=== PATIENT | female | born 1940 | race Caucasian/White ===

== ENCOUNTER 2024-09-23 09:06 | Inpatient (IN) | payer MEDICARE, OTHER, SELFPAY ==
[2024-09-23] VITALS (14 sets, daily range): BP systolic 136–174; BP diastolic 56–129; BMI 26.3
--- NOTE | 2024-09-23 10:00 | PTCARENOTE ---
Received pt from [facility], transport. AAO X3, anxious, denies pain or SOB on arrival. SR on monitor. 2 L NC 98%. IABP at 1:1. via RT femoral sheath. [place] lulu in rt groin also. Lines leveled , recalibrated and flushed. Abdomen soft and non tender,
fulton cath patent with clear straw colored urine. Doppler dp pulses bilaterally. Heparin infusing on arrival. Labs obtained and sent. EKG obtained.
--- NOTE | 2024-09-23 10:17 | HPS.HSE ---
Family Physician
-
Family Physician: INTERVIEWE UNKNOWN - PT NOT
Chief Complaint
-
transfer from [facility]
History of Present Illness
84 y/o F, hx of CABG x 3 with Atriclip, CAD, hx of GI bleed previously, HTN, HLD, hypothyroidism transferred today from [facility] for NSTEMI and plan for coronary intervention. She presented to [facility] with SOB, cough. in ER, found to be in acute
CHF (BNP 1979) and IV Lasix was ordered. Trop was 17. IV Heparin and ASA started for NSTEMI. Also noted to have runs of VTach. Esmolol drip was started. Patient was taken to labor custodian with mid to distal L main lesion and circ lesion; IABP and [place]
placed. Transferred to for high risk coronary intervention.
Also noted WBC of 19 with fever/UTI - Rocephin started.
Upon transfer, patient reports feeling tired, and slightly SOB. no CP. No other complaints.
Medical History
Past Medical History
Past Medical History: Reports Other (CABG x 3 with Atriclip, CAD, hx of GI bleed previously, HTN, HLD, hypothyroidism)
Past Surgical History: Reports Cardiac (CABG)
Social History
Tobacco: Non-smoker
Alcohol: None
Drug: None
Living: With Family
Family History
Family History: Not pertinent
Allergies / Home Medications
Allergies reflects when Allergies were last updated in [employer].
Home Medications with original date entered in [employer]
Allergy/Medication List:
Allergies
Allergy/AdvReac Type Severity Reaction Status Date / Time
No Known Allergies Allergy Verified 09/23/24 10:45
Home Medications
aspirin 81 mg chewable tablet 81 mg PO DAILY 05/28/22
ezetimibe 10 mg tablet (Zetia) 10 mg PO DAILY 05/28/22
levothyroxine 75 mcg tablet 100 mcg PO DAILY 05/28/22
rosuvastatin 20 mg tablet 20 mg PO HS 05/28/22
metoprolol tartrate 25 mg tablet 12.5 mg (1/2 x 25 mg) PO Q12 Heart disease/condition #60 tabs 06/13/22
pantoprazole 40 mg tablet,delayed release 40 mg PO BID Gastrointestinal issue #60 tabs 06/13/22
Review of Systems
-
A 12 point ROS was completed and negative except as noted: Yes
Physical Exam
Vital Signs
Vital Signs
Temp Pulse Resp BP Pulse Ox
98.5 F 74 27 146/81 98
09/23/24 09:54 09/23/24 10:00 09/23/24 10:00 09/23/24 09:55 09/23/24 10:00
Physical Exam
General: No Apparent Distress
HEENT: NormoCephalic and Anicteric
Respiratory: Crackles
Cardiac: S1/S2 and Regular Rhythm
GI: Soft and Non Tender
Genito-urinary: Teresa
Musculoskeletal: Other ([place] and IABP lines)
Neuro: AO x 3
Psych: Calm
Data Reviewed
-
Critical Care Time (in minutes): 75
Lab Data: Labs Reviewed by me
Impression/Plan
-
Assessment:
Acute HFpEF
- IV Lasix - requires intensive monitoring of I/Os, weights, lytes
- Echo
- Cards consult - initially Dr. Gutierrez interventional - but follows with CBC
NSTEMI presentation at [facility] 09/22
Hx of CAD s/p CABG (hx of Atriclip)
- continue IV Heparin - requires intensive monitoring of PTTs
- continue aspirin
- BB per Cardiology
Essential HTN
HLD - statin/Zetia
Hypothyroidism
- continue levothyroxine
hx of GI bleed (esophageal ulcers)
- continue PPI
- Hb stable >12. repeat pending.
Possible UTI at [facility]
- resume IV Rocephin
- UA/Cx pending
DVT ppx: IV Heparin
Code: Full
Total Critical Care Time 75 minutes. I was immediately available to the patient and staff. I personally examined, reviewed labs, diagnostic images/reports, interpretations, treatment plans, discussed patient care with other providers and family
or caregivers (if patient is unable to make decisions), entered orders as appropriate and documented the medical record.
--- NOTE | 2024-09-23 10:18 | CON.CAR ---
Consultation
Consultation Request
Date/Time Consultation Requested: 09/23/2024
Date/Time Consultation Performed: 09/23/2024
Requesting Provider: Mariola Martinez
Performing Provider: Kailyn Gutierrez
Reason for Consultation: SOB
Medical History
-
Chief Complaint: SOB and LH
History of Present Illness:
Phyllis is a 84-year-old female with past medical history of hypertension, hyperlipidemia, hypothyroidism, KCD Stage IIIA, GERD, prior vasovagal syncope, paroxysmal SVT, former smoker, prior history of GI bleed due to esophageal ulcers during admission
in 2022 and chronic anemia, coronary artery disease status post coronary artery bypass grafting with atrial clip by Dr. Aris Dubois on 06/08/2022 with a ALICIA to LAD, saphenous vein graft to OM and saphenous vein graft to RPDA and 35mm Atriclip
who was transferred urgently this morning from [facility] due to concern for high risk NSTEMI and potential need for urgent high risk coronary artery intervention warranting atherectomy after presenting there initially with acutely
worsening orthopnea, feeling like she could not lay down and feeling like she was going to along with some lightheadedness. She was noted to be in acute decompensated heart failure with BNP of 1980, lactate of 1.7, high-sensitivity troponin
elevated to 17,000 with repeat down to 15,000. Her initial EKG showed sinus rhythm, PACs and nonspecific ST T wave changes. Patient never complained of any chest pain. Repeat EKG concerning for ischemia with ST elevations in aVR and ST
depressions diffusely in other leads. Given this interventional cardiology at [facility] was consulted and patient was urgently taken to the heart catheterization lab. Her ALICIA to LAD is widely patent as is her vein graft to RPDA. Her
vein graft to OM is now occluded with a heavily calcified mid to distal left main into ostial left circumflex subtotal occlusion with JONH II flow. There is also significant ostial and proximal RCA lesions with patent vein graft to RPDA. Mid LAD
is occluded. Mild to moderate pulmonary hypertension in the setting of elevated pulmonary capillary wedge and LVEDP were noted. Normal cardiac output and cardiac index. An intra-aortic balloon pump was placed and given the high risk nature of the
lesion requiring possible urgent intervention and atherectomy decision was made to transfer her to [facility]. Patient has remained stable hemodynamically there as well as here. She was placed on esmolol drip there as well as a IV
unfractionated heparin drip. She was also loaded with 180 mg of Brilinta.
Of note her WBC count was 19,000 there with questionable fever and UTI and she was started on Rocephin. Upon transfer here patient reports generally feeling tired however tells me that her breathing has improved with no chest pain. Upon probing
she does tell me that over the last 2 months she has been experiencing increasing dyspnea with exertion however denies any lower extremity edema, orthopnea or PND. No lightheadedness/dizziness until Wednesday evening. No episodes of syncope. No
chest discomfort at rest or with exertion.
As an outpatient she is known to Dr. Ludwin Ramos who saw her last in April with reported echocardiogram from May 2024 showing overall preserved LV systolic function without significant valvular abnormalities however we do not have these
records.
Past Medical History
Past Medical History: CAD, HTN, Hypercholesterolemia, Hypothyroidism and Renal Failure
Past Surgical History: Cardiac (CABG)
Social History
Tobacco: Former Smoker
Alcohol: Occasional
Drug: None
Personal:
Living: With Family
Employment: Retired
Family History
Family History: Reviewed & Not Pertinent
Allergies / Home Medications
Allergy/AdvReac Type Severity Reaction Status Date / Time
No Known Allergies Allergy Unverified 05/28/22 21:29
�Medication �Instructions �Recorded �Confirmed �Type
aspirin 81 mg chewable tablet 81 mg PO DAILY 05/28/22 05/28/22 History
ezetimibe 10 mg tablet (Zetia) 10 mg PO DAILY 05/28/22 05/28/22 History
levothyroxine 75 mcg tablet 75 mcg PO DAILY 05/28/22 05/28/22 History
rosuvastatin 20 mg tablet 20 mg PO HS 05/28/22 05/28/22 History
acetaminophen 325 mg tablet 650 mg (2 x 325 mg) PO Q6HPRN PRN 06/13/22 Rx
mild pain,headache,temp >101F #0
tabs
clopidogrel 75 mg tablet 75 mg PO DAILY Blood clot 06/13/22 Rx
prevention/tx #30 tabs
furosemide 20 mg tablet (Lasix) 20 mg PO DAILY Fluid 06/13/22 Rx
retention/Swelling #30 tabs
metoprolol tartrate 25 mg tablet 12.5 mg (1/2 x 25 mg) PO Q12 Heart 06/13/22 Rx
disease/condition #60 tabs
oxycodone 5 mg tablet 5 mg PO Q8HPRN PRN moderate pain 06/13/22 Rx
#24 tabs
pantoprazole 40 mg tablet,delayed 40 mg PO BID Gastrointestinal 06/13/22 Rx
release issue #60 tabs
potassium chloride 10 mEq 10 meq PO DAILY Electrolyte 06/13/22 Rx
tablet,extended release(part/cryst) Repletion #15 tabs
sennosides 8.6 mg-docusate sodium 1 tab PO Q12 Constipation #15 tabs 06/13/22 Rx
50 mg tablet
Review of Systems
-
All other systems: Negative unless noted
Physical Exam
Vital Signs
Temp Pulse Resp BP Pulse Ox
98.5 F 74 27 146/81 98
09/23/24 09:54 09/23/24 10:00 09/23/24 10:00 09/23/24 09:55 09/23/24 10:00
Physical Exam
General: Well Developed, Well Nourished, No Apparent Distress and Comfortable
HEENT: Moist Mucous Membranes
Respiratory: Crackles
Cardiac: S1/S2, Regular Rhythm, JVD and HJR; Negative Murmur or Peripheral Edema
GI: Soft, Non Tender, Non Distended and Normal Bowel Sounds
Musculoskeletal: No Clubbing, No Cyanosis and No Edema
Skin: Warm and Dry
Neuro: AO x 3
Psych: Calm
Impression / Plan
-
Phyllis is a 84-year-old female with past medical history of hypertension, hyperlipidemia, hypothyroidism, CKD Stage IIIA, GERD, prior vasovagal syncope, paroxysmal SVT, former smoker, prior history of GI bleed due to esophageal ulcers during admission
in 2022 and chronic anemia, coronary artery disease status post coronary artery bypass grafting with atrial clip by Dr. Aris Dubois on 06/08/2022 with a ALICIA to LAD, saphenous vein graft to OM and saphenous vein graft to RPDA and 35mm Atriclip
who was transferred urgently this morning from [facility] due to concern for high risk NSTEMI and potential need for urgent high risk coronary artery intervention warranting atherectomy after presenting there initially with acutely
worsening orthopnea, feeling like she could not lay down and feeling like she was going to along with some lightheadedness. She was noted to be in acute decompensated heart failure with BNP of 1980, lactate of 1.7, high-sensitivity troponin
elevated to 17,000 with repeat down to 15,000. Her initial EKG showed sinus rhythm, PACs and nonspecific ST T wave changes. Patient never complained of any chest pain. Repeat EKG concerning for ischemia with ST elevations in aVR and ST
depressions diffusely in other leads. Given this interventional cardiology at [facility] was consulted and patient was urgently taken to the heart catheterization lab. Her ALICIA to LAD is widely patent as is her vein graft to RPDA. Her
vein graft to OM is now occluded with a heavily calcified mid to distal left main into ostial left circumflex subtotal occlusion with JONH II flow. There is also significant ostial and proximal RCA lesions with patent vein graft to RPDA. Mid LAD
is occluded. Mild to moderate pulmonary hypertension in the setting of elevated pulmonary capillary wedge and LVEDP were noted. Normal cardiac output and cardiac index. An intra-aortic balloon pump was placed and given the high risk nature of the
lesion requiring possible urgent intervention and atherectomy decision was made to transfer her to [facility]. Patient has remained stable hemodynamically there as well as here. She was placed on esmolol drip there as well as a IV
unfractionated heparin drip. She was also loaded with 180 mg of Brilinta.
Outpatient Social Studies Teacher: Dr. Ludwin Ramos
Impression
High risk NSTEMI, initially with ongoing ischemia, requiring intra-aortic balloon pump
Acute decompensated systolic and diastolic heart failure.
Ischemic cardiomyopathy, LVEF of 45% with lateral and inferolateral hypokinesis
Coronary artery disease status post CABG in 2022 with ALICIA to LAD, saphenous vein graft to OM and saphenous vein graft to RPDA, SVG to OM is occluded now
Hypertension
Hyperlipidemia
Prior GI bleeding secondary to esophageal ulcer during admission in 2022
Chronic kidney disease stage IIIa
GERD
Prior vasovagal syncope
Paroxysmal SVT
Chronic anemia
Former smoker
Recommendations:
1. Reviewed all of the labs and records from [facility] in significant detail with summary as noted above.
2. Reviewed the cath images myself and a heavily calcified subtotal occlusion noted in the mid to distal left main into ostial left circumflex which is likely culprit of presenting NSTEMI.
3. Continue support with intra-aortic balloon pump given presenting ischemia with [place] in place. Reviewed chest x-ray myself with PA catheter tip noted in the central PA. Mixed venous sat just resulted at 74.8.
4. Check labs every 6 hours including lactate, mixed venous sats, CMP to make sure there is no evidence of a low flow state. Closely monitor blood counts while on aspirin and Brilinta
5. Continue high intensity statin. Beta-junie as tolerated by hemodynamics.
6. Continue IV heparin drip and monitor PTTs.
7. Echocardiogram reviewed at bedside showing LVEF of 45% by visual estimation with lateral and inferolateral hypokinesis.
8. Ongoing discussions in regards to ideal timing to bring back to the heart catheterization lab for high risk intervention with atherectomy. Will discuss with CT surgery in regards to surgical backup.
Discussed all of the above with nursing at bedside along with patient and her daughter.
Kailyn H. Gutierrez, MD, [facility], [facility]
Critical care time 36 mins
Data Reviewed
-
EKG: Tracing Personally Visualized and interpreted
Radiology: Image Personally Visualized and interpreted
Medical Tests (Nuc Med, Echo etc): Image Personally Visualized and interpreted
Labs: Labs Reviewed by me
Old Records: Requested and Reviewed
[2024-09-23 10:54] LABS: % Basophils 0.2 % (0-2); % Immature Granulocytes 0.5 % (0-0.5); % Lymphocytes 9.6 % (20.5-51.1); % Monocytes 8.2 % (1.7-9.3); % Neutrophils 81.5 % (42.2-75.2); Absolute Immature Granulocytes 0.1 10^3/uL (0-0.05); Absolute Lymphocytes 1.3 10^3/uL (1.2-3.4); Absolute Monocytes 1.1 10^3/uL (0.1-0.6); Absolute Neutrophils 10.6 10^3/uL (1.4-6.5); Hematocrit 33.1 % (37.0-47.0); Hemoglobin 11.2 g/dL (12.0-16.0); Mean Corp Hgb Conc. 33.8 g/dL (33.0-37.0); Mean Corpuscular Hgb 27.7 pg (27.0-31.0); Mean Corpuscular Volume 81.9 fL (81.0-99.0); Mean Platelet Volume 9.6 fL (7.4-10.4); Nucleated Red Blood Cells % 0 %; Platelet Count 194 10^3/uL (130-400); Red Blood Cell Count 4.04 10^6/uL (4.20-5.40); Red Cell Dist. Width 15.1 % (11.5-14.5); White Blood Cell Count 13.1 10^3/uL (4.8-10.8)
[2024-09-23 11:04] LABS: Mixed Venous O2 Saturation 74.6 %
[2024-09-23 11:05] LABS: INR 1.21; PT 15.6 Sec (11.4-14.6)
[2024-09-23 11:07] LABS: Lactic Acid 2.4 mmol/L (0.7-2.0)
[2024-09-23 11:13] LABS: Glycohemoglobin (HgbA1c) 6.3 % (4.0-5.6)
[2024-09-23 11:28] LABS: NT-proBNP > 27000 pg/ml
[2024-09-23 11:56] LABS: Blood Urea Nitrogen 40 mg/dl (7-17); Calcium 8.6 mg/dl (8.4-10.2); Carbon Dioxide 26 mmol/L (22-30); Chloride 107 mmol/L (98-107); Estimated Creatinine Clearance 33 ml/min; Glucose 138 mg/dl (70-99); Potassium 2.9 mmol/L (3.5-5.1); Sodium 140 mmol/L (135-145); eGFR 49.86
--- NOTE | 2024-09-23 12:00 | PTCARENOTE ---
Critical potassium level discussed with Dr Gutierrez. Potassium repleated.
[2024-09-23 12:05] LABS: ALT (SGPT) 28 U/L (0-35); AST (SGOT) 67 U/L (14-36); Albumin 3.1 g/dl (3.5-5.0); Alkaline Phosphatase 69 U/L (38-126); Blood Urea Nitrogen 41 mg/dl (7-17); Calcium 8.8 mg/dl (8.4-10.2); Carbon Dioxide 23 mmol/L (22-30); Chloride 106 mmol/L (98-107); Estimated Creatinine Clearance 33 ml/min; Glucose 143 mg/dl (70-99); HDL Cholesterol 40 mg/dl; LDL Cholesterol, Calculated 77 mg/dl; Magnesium 1.8 mg/dl (1.6-2.3); Potassium 3.3 mmol/L (3.5-5.1); Sodium 140 mmol/L (135-145); Total Cholesterol 146 mg/dl (50-199); Total Protein 5.1 g/dl (6.3-8.2); Triglyceride 146 mg/dl (10-149); Very Low Density Lipoprotein 29 mg/dl (0-30); eGFR 49.86
[2024-09-23] MEDS: KCL 100 IV (12:13)
[2024-09-23] MEDS: KLOR-CON 40 MEQ PO (12:13)
[2024-09-23 12:15] LABS: Total Bilirubin 0.9 mg/dl (0.2-1.3)
[2024-09-23 12:29] LABS: TSH Reflex To Free T4 0.03 uIU/ml (0.47-4.68)
[2024-09-23 12:33] LABS: B.E. 2.7 mmol/L; HCO3 25.9 mmol/L (21-28); O2 Saturation % 99.9 % (94-98); PCO2 34 mmHg (32-35); PO2 113 mmHg (83-108); pH 7.49 (7.35-7.45)
[2024-09-23 12:37] LABS: Urine Albumin Negative (Neg - Trace); Urine Bilirubin Negative (Negative); Urine Character Clear (Clear); Urine Color Yellow; Urine Glucose 3+ (Negative); Urine Ketone Negative (Negative); Urine Leukocyte 1+ (Negative); Urine Nitrite Negative (Negative); Urine Occult Blood Negative (Negative); Urine Urobilinogen Negative (Neg - 1+)
[2024-09-23 12:46] LABS: Lactic Acid 1.4 mmol/L (0.7-2.0); Magnesium 1.8 mg/dl (1.6-2.3)
[2024-09-23 12:49] LABS: Urine Squamous Cell 0-2 /LPF (Few)
[2024-09-23 12:50] LABS: Urine Bacteria Few (Negative); Urine Red Blood Cell 0-2 /HPF (0-2)
[2024-09-23 12:58] LABS: Free T4 2.84 ng/dl (0.78-2.19)
--- NOTE | 2024-09-23 13:22 | PTCARENOTE ---
Becoming increasingly anxious while laying flat in bed, yelling out. RN in room, pt asking repeat questions about the plan , also stating that theres ' no way i can lay here for days', emotional support provided. Bed alarm set on bed. updated.
[2024-09-23] MEDS: TOPROL XL 25 MG PO (13:52)
[2024-09-23] MEDS: ATIVAN 0.5 MG PO ×2 (14:27→20:12)
[2024-09-23] MEDS: LASIX 40 MG IV (16:06)
--- NOTE | 2024-09-23 16:14 | W.PN.UPDATE ---
Update Note
Progress Note Update
Interventional cardiology update note
Patient continues to remain stable hemodynamically with augmented blood pressures in the 120s to 130s. PA diastolic pressures in the 20s. She is making good urine. She denies any chest discomfort or shortness of breath and is laying in bed
comfortably.
Repeat lactate normal at 1.4. Potassium back at 2.9 which was repleted accordingly. Magnesium was also checked which was 1.8. Mixed venous sat of 74.5 with calculated cardiac index by Mayuri calculation of 2.2 L/min/kg
Patient with ostial left circumflex heavily calcified subtotal occlusion extending from distal left main. She is currently chest pain-free without evidence of any ongoing ischemia with ST changes normalizing on the EKG on presentation here. Given
the stenosis is heavily calcified and a subtotal occlusion there will be a high risk complex percutaneous intervention requiring plaque modification. This will have to be most likely with orbital atherectomy although we would attempt IV L shockwave
first.
Given this I have spoken with Dr. Gilberto Kim from CT surgery in regards to possible surgical backup given high risk of perforation with orbital atherectomy given severely eccentric calcified lesion in the angle of takeoff of the left circumflex
artery.
We agree that given the high risk endeavor, ideally would be best if we can allow patient to rest after undergoing diagnostic heart catheterization with 100 cc of dye this morning in the setting of CKD and optimization of medical therapy along with
IV diuresis to optimize filling pressures.
We will continue to monitor closely over the weekend and plan for urgent intervention if her clinical status changes and she were to become acutely ischemic while maintaining the balloon pump. Her distal pulses are intact and being monitored every
hour.
We will continue her cardiac medications including aspirin, Brilinta, IV unfractionated heparin, low-dose beta-junie and high intensity statin
Otherwise if hopefully patient continues to remain stable we will plan for high risk complex PCI on Wednesday morning with in-house surgical backup at this time.
All of the above was discussed in significant detail with nursing at bedside, daughter, Smita and patient. I also updated transferring cashier parking lot at [facility], Dr. Jonah Vidales along with CT surgeon,
Gilberto Kim, all of whom agree with the plan outlined above. Dr. Martinez also updated.
All questions from patient and daughter were answered to the best of my ability.
Kailyn Gutierrez MD, [facility], [facility]
Total time spent: 35mins
[2024-09-23 16:25] LABS: B.E. 1.3 mmol/L; HCO3 24.9 mmol/L (21-28); PCO2 35 mmHg (32-35); PO2 122 mmHg (83-108); pH 7.46 (7.35-7.45)
[2024-09-23 16:27] LABS: Mixed Venous O2 Saturation 74.8 %
--- NOTE | 2024-09-23 16:34 | PTCARENOTE ---
Turned and repositioned by RN. Less anxious at present after Ativan administered. VSS. Family updated by Dr Gutierrez. Assessment unchanged otherwise from prior.
[2024-09-23 16:36] LABS: Lactic Acid 0.7 mmol/L (0.7-2.0)
[2024-09-23 16:37] LABS: APTT 127.7 Sec (23.4-35.0)
[2024-09-23 16:45] LABS: ALT (SGPT) 30 U/L (0-35); AST (SGOT) 66 U/L (14-36); Albumin 3.3 g/dl (3.5-5.0); Alkaline Phosphatase 73 U/L (38-126); Blood Urea Nitrogen 39 mg/dl (7-17); Calcium 8.5 mg/dl (8.4-10.2); Carbon Dioxide 23 mmol/L (22-30); Chloride 108 mmol/L (98-107); Estimated Creatinine Clearance 30 ml/min; Glucose 111 mg/dl (70-99); Total Bilirubin 1.1 mg/dl (0.2-1.3); Total Protein 5.7 g/dl (6.3-8.2); eGFR 44.91
[2024-09-23 16:51] LABS: Potassium 4.2 mmol/L (3.5-5.1); Sodium 140 mmol/L (135-145)
[2024-09-23] MEDS: COREG 3.125 MG PO (20:11)
[2024-09-23] MEDS: PROTONIX 40 MG PO (20:12)
[2024-09-23] MEDS: BRILINTA 90 MG PO (20:12)
[2024-09-23] MEDS: CRESTOR 20 MG PO (20:13)
[2024-09-23] MEDS: TYLENOL 650 MG PO (20:16)
--- NOTE | 2024-09-23 20:50 | PTCARENOTE ---
assumed care of patient @ 1900. recieved pt laying flat in bed, Aox3. Anxious at baseline. emotional support provided. NSR HR 70s. BPs elevated 160s/170s. Lungs decreased and coarse with crackles at bases. satting high 90s on 2L. Slightly LACY.
tolerating diet, + BS. fulton draining large amounts of clear yellow urine. Doppler pedal pulses present. [place] and IABP present through R groin, site CDI no hematoma. PAPs 40s-50s/20s-30s. Balloon at 1:1, max augmentation. Heparin running at 1100
units per hour. Pt turned and repositioned. Tylenol given for back pain and ativan ordered and given for anxiety. call strong within reach .
--- NOTE | 2024-09-23 21:00 | PTCARENOTE ---
2100- patient rang call strong needing to use bedpan. with the help of another RN, gently log rolled rolled patient keeping R leg straight. during roll , blood suddenly noted in helium tube. IABP alarmed loss of helium with flat inflation waveform.
CTPA and cardiology immediately notified. Called IABP rep who instructed to clamp helium line and remove from console. During this, pt was stable without complaints of pain. BP did lower from 170s to 130s systolically and stayed at 130s/70s. Stat
labs sent, stat EKG and CXR completed. Decision was made by Dr. Gutierrez to take patient to labor and employment paralegal for replacement of IABP. pt sent down at 2300. New console sent to labor and employment paralegal. Cleaning order for console submitted by rep.
[2024-09-23 21:41] LABS: Hematocrit 37.2 % (37.0-47.0); Hemoglobin 12.4 g/dL (12.0-16.0); Mean Corp Hgb Conc. 33.3 g/dL (33.0-37.0); Mean Corpuscular Hgb 27.6 pg (27.0-31.0); Mean Corpuscular Volume 82.7 fL (81.0-99.0); Mean Platelet Volume 10.3 fL (7.4-10.4); Platelet Count 225 10^3/uL (130-400); Red Cell Dist. Width 15.3 % (11.5-14.5); White Blood Cell Count 13.4 10^3/uL (4.8-10.8)
[2024-09-23 21:54] LABS: APTT 103.4 Sec (23.4-35.0)
[2024-09-23 21:56] LABS: Lactic Acid 1.2 mmol/L (0.7-2.0)
[2024-09-23 22:02] LABS: ALT (SGPT) 30 U/L (0-35); AST (SGOT) 61 U/L (14-36); Albumin 3.6 g/dl (3.5-5.0); Alkaline Phosphatase 81 U/L (38-126); Blood Urea Nitrogen 38 mg/dl (7-17); Calcium 9.3 mg/dl (8.4-10.2); Carbon Dioxide 28 mmol/L (22-30); Chloride 104 mmol/L (98-107); Estimated Creatinine Clearance 30 ml/min; Glucose 126 mg/dl (70-99); Potassium 3.7 mmol/L (3.5-5.1); Sodium 140 mmol/L (135-145); Total Bilirubin 1.5 mg/dl (0.2-1.3); Total Protein 6.3 g/dl (6.3-8.2); eGFR 44.91
[2024-09-23 22:20] LABS: Mixed Venous O2 Saturation 67.7 %
--- NOTE | 2024-09-23 23:10 | ITS.CL.PN ---
Water Treatment Operator - Procedure Note
Procedure
Procedure Note:
IABP AND SWAN VENUS CATHETER PLACEMENT
Date of Procedure: September 23, 2024
INDICATION: Due to likely ruptured IABP and JONH II flow in the ostial left circumflex with cardiomyopathy we decided to replace the IABP.�
PROCEDURES:
1. Placement of a new 40 cc intra-aortic balloon pump.
2. Insertion of a new [place]-Venus catheter.
3. Moderate sedation.
The patient was transported to the cardiac catheterization lab where a 'Time Out' was performed.� After the usual sterile prep and drape, the 7.5 Fr vascular sheath and the IABP in the right groom was exchanged out for a 9Fr vascular sheath over a
0.025' J-tipped wire into the right common femoral artery.� An 40cc intra-aortic balloon pump (IABP) was then advanced through the sheath over a new long J-tipped 0.025' guidewire into the thoracic aorta with the radio-opaque tip marker of the IABP
placed at the level of the sommer using fluoroscopic guidance.� The IABP was then flushed and connected to its console.� There was excellent hemodynamic augmentation noted at 1:1 and there was no angina or SOB noted at the completion of the
procedure.� There were no intra-procedural complications.� The sheath was sewn in place in the right groin with Stat-Locks used to secure the IABP.��
After the usual sterile prep and drape, the right femoral venous sheath was exchanged for a new 7Fr vascular sheath.�Using fluoroscopic guidance and routine monitoring, a balloon-tipped Mendon-Venus catheter was advanced through the femoral venous
sheath into the right pulmonary artery with serial measurements of hemodynamics and oximetry being performed.
Hemodynamics (mmHg):
RA (m) : 12
RV (s/d,m) : 48/13
PA (s/d, m) : 46/24
PCWP (m) : 25
PA saturation: 66.3% on 2 L of oxygen via nasal cannula
AO saturation: 99.4% on 2 L of oxygen via nasal cannula
Cardiac Output : 3.94 L/min by Mayuri calculation
Cardiac Index : 2.44 L/min/m-2 by Mayuri calculation
Systemic vascular resistance: 1461 dsc^(-5)
Pulmonary vascular resistance: 2.54 maddox unit
Cardiac power output of 0.70
Elham: 2.75
RADIATION SUMMARY: Fluoro Time (min): 5.9, Dose (mGy): 43.44, DAP (Gy.cm2) : 6.33
CONCLUSION:
1. Successful insertion of a new 40 cc intra-aortic balloon pump and a new Mendon-Venus catheter.
Kailyn Gutierrez MD, FACC, [facility]
[2024-09-24] VITALS (16 sets, daily range): BP systolic 105–153; BP diastolic 59–111; BMI 25.9
--- NOTE | 2024-09-24 01:00 | PTCARENOTE ---
pt transfered back into 2265 from wheelabrator operator. New IABP, new [place] through R betty. All lines hooked up, transduced, zeroed. Pacific numbers obtained, C.I >2, svr high 1999, relayed to CTPA. IABP 1:1 set to max augmentation. groin site CDI. pt resting
comfortably flat in bed with call strong within reach .
[2024-09-24 04:17] LABS: Mixed Venous O2 Saturation 74.4 %
[2024-09-24 04:19] LABS: % Basophils 0.2 % (0-2); % Eosinophils 0.5 % (0-6); % Immature Granulocytes 0.4 % (0-0.5); % Lymphocytes 10.1 % (20.5-51.1); % Monocytes 7.3 % (1.7-9.3); % Neutrophils 81.5 % (42.2-75.2); Absolute Eosinophils 0.1 10^3/uL (0-0.7); Absolute Immature Granulocytes 0.1 10^3/uL (0-0.05); Absolute Lymphocytes 1.2 10^3/uL (1.2-3.4); Absolute Monocytes 0.9 10^3/uL (0.1-0.6); Absolute Neutrophils 9.8 10^3/uL (1.4-6.5); Hematocrit 35.3 % (37.0-47.0); Hemoglobin 11.4 g/dL (12.0-16.0); Mean Corp Hgb Conc. 32.3 g/dL (33.0-37.0); Mean Corpuscular Hgb 27.4 pg (27.0-31.0); Mean Corpuscular Volume 84.9 fL (81.0-99.0); Mean Platelet Volume 10.2 fL (7.4-10.4); Nucleated Red Blood Cells % 0 %; Platelet Count 183 10^3/uL (130-400); Red Blood Cell Count 4.16 10^6/uL (4.20-5.40); Red Cell Dist. Width 15.1 % (11.5-14.5)
[2024-09-24 04:35] LABS: APTT 63.4 Sec (23.4-35.0)
[2024-09-24 04:46] LABS: Lactic Acid 0.5 mmol/L (0.7-2.0)
[2024-09-24] MEDS: TYLENOL 650 MG PO (04:46)
[2024-09-24] MEDS: SYNTHROID 100 MCG PO (04:46)
[2024-09-24] MEDS: HEPARIN 25000 UNITS/250 ML IV (04:49)
--- NOTE | 2024-09-24 05:00 | PTCARENOTE ---
labs drawn and sent. K and Mag repleted. EKG and CXR done. Vitals and swan numbers relayed to CTPA. pt resting comfortably supine in bed without complaints . call strong within reach .
[2024-09-24 05:24] LABS: ALT (SGPT) 25 U/L (0-35); AST (SGOT) 52 U/L (14-36); Alkaline Phosphatase 74 U/L (38-126); Blood Urea Nitrogen 38 mg/dl (7-17); Calcium 8.6 mg/dl (8.4-10.2); Carbon Dioxide 28 mmol/L (22-30); Chloride 106 mmol/L (98-107); Estimated Creatinine Clearance 33 ml/min; Glucose 122 mg/dl (70-99); Magnesium 1.8 mg/dl (1.6-2.3); Potassium 3.5 mmol/L (3.5-5.1); Sodium 142 mmol/L (135-145); Total Bilirubin 1.2 mg/dl (0.2-1.3); eGFR 49.86
[2024-09-24] MEDS: MAGNESIUM OXIDE 500 MG PO ×3 (05:51→20:04)
[2024-09-24] MEDS: KCL 40 MEQ PO (05:52)
--- NOTE | 2024-09-24 07:16 | W.PN.CARDCBS ---
Today's Communication / Plan
-
Recommendations:
1. Continue support with intra-aortic balloon pump at one-to-one support given presenting ischemia Wednesday night with [place]Regis in place. Reviewed chest x-ray myself with PA catheter tip noted in the central PA, IABP positioning is also
satisfactory. Mixed venous sat just resulted at 74, with cardiac index by thermodilution at 2.17. PA pressure of 34/15, RA pressure of 10. Plan to continue Lasix 20 mg IV twice daily for now with close monitoring of electrolytes and renal
function.
2. Continue to check labs every 6 hours including lactate, mixed venous sats, CMP to make sure there is no evidence of a low flow state. Closely monitor blood counts while on aspirin and Brilinta
3. Continue high intensity statin. Beta-junie as tolerated by hemodynamics.
4. Continue IV heparin drip and monitor PTTs.
5. Echocardiogram showing LVEF of 45% by visual estimation with lateral and inferolateral hypokinesis.
6. ECG stable with no significant events noted on telemetry
7. Plan to make n.p.o. after midnight for high risk left main to left circumflex PCI tomorrow morning with atherectomy.
Discussed all of the above with nursing at bedside along with patient and her daughter.
Kailyn Gutierrez MD, [facility], [facility]
Critical care time 31 mins
Impression / Plan
-
Phyllis is a 84-year-old female with past medical history of hypertension, hyperlipidemia, hypothyroidism, CKD Stage IIIA, GERD, prior vasovagal syncope, paroxysmal SVT, former smoker, prior history of GI bleed due to esophageal ulcers during admission
in 2022 and chronic anemia, coronary artery disease status post coronary artery bypass grafting with atrial clip by Dr. Aris Dubois on 06/08/2022 with a ALICIA to LAD, saphenous vein graft to OM and saphenous vein graft to RPDA and 35mm Atriclip
who was transferred urgently this morning from [facility] due to concern for high risk NSTEMI and potential need for urgent high risk coronary artery intervention warranting atherectomy after presenting there initially with acutely
worsening orthopnea, feeling like she could not lay down and feeling like she was going to along with some lightheadedness. She was noted to be in acute decompensated heart failure with BNP of 1980, lactate of 1.7, high-sensitivity troponin
elevated to 17,000 with repeat down to 15,000. Her initial EKG showed sinus rhythm, PACs and nonspecific ST T wave changes. Patient never complained of any chest pain. Repeat EKG concerning for ischemia with ST elevations in aVR and ST
depressions diffusely in other leads. Given this interventional cardiology at [facility] was consulted and patient was urgently taken to the heart catheterization lab. Her ALICIA to LAD is widely patent as is her vein graft to RPDA. Her
vein graft to OM is now occluded with a heavily calcified mid to distal left main into ostial left circumflex subtotal occlusion with JONH II flow. There is also significant ostial and proximal RCA lesions with patent vein graft to RPDA. Mid LAD
is occluded. Mild to moderate pulmonary hypertension in the setting of elevated pulmonary capillary wedge and LVEDP were noted. Normal cardiac output and cardiac index. An intra-aortic balloon pump was placed and given the high risk nature of the
lesion requiring possible urgent intervention and atherectomy decision was made to transfer her to [facility]. Patient has remained stable hemodynamically there as well as here. She was placed on esmolol drip there as well as a IV
unfractionated heparin drip. She was also loaded with 180 mg of Brilinta.
Outpatient Sewing Machine Operator Floorperson: Dr. Ludwin Ramos
Impression
High risk NSTEMI, initially with ongoing ischemia, requiring intra-aortic balloon pump
Acute decompensated systolic and diastolic heart failure.
Ischemic cardiomyopathy, LVEF of 45% with lateral and inferolateral hypokinesis
Coronary artery disease status post CABG in 2022 with ALICIA to LAD, saphenous vein graft to OM and saphenous vein graft to RPDA, SVG to OM is occluded now
Hypertension
Hyperlipidemia
Prior GI bleeding secondary to esophageal ulcer during admission in 2022
Chronic kidney disease stage IIIa
GERD
Prior vasovagal syncope
Paroxysmal SVT
Chronic anemia
Former smoker
Progress Note - Sewing Machine Operator Floorperson
Subjective
Date of Service: September 24, 2024
No overnight events. Patient slept well. She appears comfortable this morning and does not offer any complaints.
Objective
Labs:
09/24/24 04:05
Labs
Hgb 11.4 g/dL (12.0-16.0) L 09/24/24 04:05
Hct 35.3 % (37.0-47.0) L 09/24/24 04:05
Plt Count 183 10^3/uL (130-400) 09/24/24 04:05
PT 15.6 Sec (11.4-14.6) H 09/23/24 10:40
INR 1.21 09/23/24 10:40
APTT 63.4 Sec (23.4-35.0) H 09/24/24 04:09
Sodium 142 mmol/L (135-145) 09/24/24 04:05
Sodium Cancelled 09/24/24 04:05
Potassium 3.5 mmol/L (3.5-5.1) 09/24/24 04:05
Potassium Cancelled 09/24/24 04:05
BUN 38 mg/dl (7-17) H 09/24/24 04:05
BUN Cancelled 09/24/24 04:05
Creatinine 1.1 mg/dL (0.6-1.0) H 09/24/24 04:05
Creatinine Cancelled 09/24/24 04:05
Glucose 122 mg/dl (70-99) H 09/24/24 04:05
Glucose Cancelled 09/24/24 04:05
Troponins
09/23/24 09/23/24 09/23/24
10:40 11:07 11:35
Troponin I Cancelled Cancelled 16.400 H*
09/23/24 09/23/24 09/23/24
16:16 21:32 22:15
Troponin I 17.200 H* 16.800 H* Cancelled
09/24/24
04:05
Troponin I 12.100 H* D
Vital Signs and I&O:
Vital Signs
Temp Pulse Resp BP Pulse Ox
99.0 F 59 28 159/118 98
09/24/24 06:00 09/24/24 06:15 09/24/24 06:15 09/23/24 21:00 09/24/24 06:15
Vital Signs
Temp Pulse Resp BP Pulse Ox
99.0 F 59 28 159/118 98
09/24/24 06:00 09/24/24 06:15 09/24/24 06:15 09/23/24 21:00 09/24/24 06:15
Intake & Output
09/22/24 09/23/24 09/24/24 09/25/24
06:59 06:59 06:59 06:59
Intake Total 514 / 514
Output Total 3835 / 3835
Balance -3321 / -3321
Physical Exam
Physical Exam
Patient is comfortable in bed, no acute distress, awake, alert and oriented x 3
Regular rate, normal S1 and S2,
Lungs are clear to auscultation anteriorly
Abdomen soft, nontender, nondistended with active bowel sounds
Right groin site without evidence of hematoma or bruit, IABP and [place]Reg[place] catheter are in place warm extremities, lower extremity pulses are dopplerable
--- NOTE | 2024-09-24 08:00 | PTCARENOTE ---
Patient received from assistant casino shift manager RN; AAOx3, responds spontaneously to RN and follows commands; Drowsy and forgetful; VSS; SR with PVC's on monitor; DP pulses present by Doppler; Shallow respirations; SpO2 96-100% on RA; Lungs diminished throughout;
Poor appetite; Teresa catheter draining clear, yellow urine; PIVx3 - #20 LAC, #20 RAC, and #20 left forearm; Right femoral access with [place]-lulu floated to 60 cm and with IABP on 1:1 timing with max augmentation - all lines zeroed and level; Heparin
drip infusing - see nursing flowsheets for further details; IV Lasix decreased to 20 mg and PO Carvedilol increased to 12.5 mg; See nursing documentation for further information.
CO: 3.51
CI: 2.17
SVR: 2,233
[2024-09-24] MEDS: LASIX IV (09:13)
[2024-09-24] MEDS: COREG 12.5 MG PO ×2 (09:31→20:05)
[2024-09-24] MEDS: BRILINTA 90 MG PO ×2 (09:32→20:01)
[2024-09-24] MEDS: ZETIA 10 MG PO (09:32)
[2024-09-24] MEDS: ROCEPHIN 1000 MG IV (09:32)
[2024-09-24] MEDS: LOW STRENGTH ASPIRIN 81 MG PO (09:32)
[2024-09-24] MEDS: PROTONIX 40 MG PO ×2 (09:32→20:01)
[2024-09-24] MEDS: STERILE WATER FOR INJECTION 10 ML IV (09:32)
[2024-09-24] MEDS: LASIX 20 MG IV ×2 (09:33→17:01)
[2024-09-24 11:32] LABS: APTT 131.1 Sec (23.4-35.0)
[2024-09-24 11:35] LABS: ALT (SGPT) 25 U/L (0-35); AST (SGOT) 46 U/L (14-36); Albumin 3.5 g/dl (3.5-5.0); Alkaline Phosphatase 81 U/L (38-126); Blood Urea Nitrogen 38 mg/dl (7-17); Calcium 8.6 mg/dl (8.4-10.2); Carbon Dioxide 29 mmol/L (22-30); Chloride 105 mmol/L (98-107); Estimated Creatinine Clearance 28 ml/min; Glucose 109 mg/dl (70-99); Sodium 142 mmol/L (135-145); Total Bilirubin 1.1 mg/dl (0.2-1.3)
--- NOTE | 2024-09-24 12:00 | PTCARENOTE ---
CXR repeated at bedside after radiologist states she had difficulty visualizing IABP on CXR from this AM; Augmentation alarm lowered to 110 and MD Gutierrez notified and aware due to alarming; VSS; Heparin drip adjusted accordingly with PTT assessment
CO: 2.97
CI: 1.83
SVR: 2,073
[2024-09-24 12:04] LABS: Lactic Acid 0.8 mmol/L (0.7-2.0)
--- NOTE | 2024-09-24 12:08 | W.PN.HOSP.TC ---
Today's Communication/Plan
-
IV Lasix
IV Heparin
NPO p MN for Cath
Assessment / Plan
Assessment / Plan
Assessment:
Acute HFpEF
- IV Lasix - requires intensive monitoring of I/Os, weights, lytes
- Echo
- Cards following
NSTEMI presentation at [facility] 09/22
Hx of CAD s/p CABG (hx of Atriclip)
- continue IV Heparin - requires intensive monitoring of PTTs
- continue aspirin/Coreg
- NPO p MN for high risk left main to left circumflex PCI tomorrow morning with atherectomy
Essential HTN
HLD - statin/Zetia
Hypothyroidism
- continue levothyroxine
hx of GI bleed (esophageal ulcers)
- continue PPI
- Hb stable >12. repeat pending.
Possible UTI at [facility]
- resume IV Rocephin, day 2 (was on Rocephin at [facility])
- UA/Cx pending
DVT ppx: IV Heparin
Code: Full
Total Critical Care Time 42 minutes. I was immediately available to the patient and staff. I personally examined, reviewed labs, diagnostic images/reports, interpretations, treatment plans, discussed patient care with other providers and family
or caregivers (if patient is unable to make decisions), entered orders as appropriate and documented the medical record.
Anticipated Discharge: > 48 hours
Subjective/Interval History
-
Date of Service: September 24, 2024
resting comfortable
IV Lasix continues
Objective Data
-
Labs:
Laboratory Results
09/24/24 09/24/24 09/24/24
00:30 04:00 04:05
WBC 12.0 H
Hgb 11.4 L
Hct 35.3 L
Plt Count 183
APTT
HCO3 Cancelled Cancelled
Sodium 142
Potassium
Chloride
Carbon Dioxide
BUN
Creatinine
Glucose
Calcium
Total Bilirubin
AST
ALT
Alkaline Phosphatase
09/24/24 09/24/24 09/24/24
04:05 04:05 04:05
WBC
Hgb
Hct
Plt Count
APTT
HCO3
Sodium Cancelled
Potassium 3.5 Cancelled
Chloride 106 Cancelled
Carbon Dioxide 28
BUN
Creatinine
Glucose
Calcium
Total Bilirubin
AST
ALT
Alkaline Phosphatase
09/24/24 09/24/24 09/24/24
04:05 04:05 04:05
WBC
Hgb
Hct
Plt Count
APTT
HCO3
Sodium
Potassium
Chloride
Carbon Dioxide Cancelled
BUN 38 H Cancelled
Creatinine 1.1 H Cancelled
Glucose 122 H
Calcium
Total Bilirubin
AST
ALT
Alkaline Phosphatase
09/24/24 09/24/24 09/24/24
04:05 04:05 04:09
WBC
Hgb
Hct
Plt Count
APTT 63.4 H
HCO3
Sodium
Potassium
Chloride
Carbon Dioxide
BUN
Creatinine
Glucose Cancelled
Calcium 8.6 Cancelled
Total Bilirubin 1.2
AST 52 H
ALT 25
Alkaline Phosphatase 74
09/24/24
11:11
WBC
Hgb
Hct
Plt Count
APTT 131.1 H
HCO3
Sodium 142
Potassium 4.0
Chloride 105
Carbon Dioxide 29
BUN 38 H
Creatinine 1.3 H
Glucose 109 H
Calcium 8.6
Total Bilirubin 1.1
AST 46 H
ALT 25
Alkaline Phosphatase 81
Vital Signs:
Vital Signs
Temp Pulse Resp BP Pulse Ox
98.9 F 64 20 139/90 100
09/24/24 12:00 09/24/24 11:30 09/24/24 12:00 09/24/24 11:00 09/24/24 12:00
I&O
09/23/24 09/24/24 09/25/24
06:59 06:59 06:59
Intake Total 514 / 527 368 / 368
Output Total 3835 / 3915 495 / 495
Balance -3321 / -3388 -127 / -127
Physical Exam
-
General: No Apparent Distress
HEENT: Normocephalic and Atraumatic
Respiratory: Crackles
Cardiac: Regular Rhythm and S1/S2
GI: Soft and Nontender
Skin: Other
Neuro: AO x 3
Data Reviewed
-
Critical Care Time (in minutes): 42
Labs: Labs Reviewed by me
[2024-09-24 17:11] LABS: Mixed Venous O2 Saturation 69.7 %
--- NOTE | 2024-09-24 17:13 | PTCARENOTE ---
Augmentation alarm raised back up to 120 on IABP - MD Gutierrez notified and aware; Labs drawn and sent; Patient incontinent of BM this afternoon; Patient with poor appetite and refusing to eat due to being afraid to have another BM while IABP in place
CO: 3.25
CI: 2.01
SVR: 2,190
[2024-09-24 17:26] LABS: Lactic Acid 0.9 mmol/L (0.7-2.0)
[2024-09-24 17:53] LABS: ALT (SGPT) 22 U/L (0-35); AST (SGOT) 42 U/L (14-36); Albumin 2.9 g/dl (3.5-5.0); Blood Urea Nitrogen 40 mg/dl (7-17); Carbon Dioxide 27 mmol/L (22-30); Estimated Creatinine Clearance 30 ml/min; Glucose 130 mg/dl (70-99); Potassium 4.1 mmol/L (3.5-5.1); Sodium 138 mmol/L (135-145); Total Protein 5.1 g/dl (6.3-8.2); eGFR 44.91
[2024-09-24 18:27] LABS: Alkaline Phosphatase 75 U/L (38-126); Calcium 8.6 mg/dl (8.4-10.2); Chloride 106 mmol/L (98-107)
[2024-09-24 18:32] LABS: APTT 65.9 Sec (23.4-35.0)
[2024-09-24] MEDS: CRESTOR 20 MG PO (20:43)
--- NOTE | 2024-09-24 22:42 | W.PN.UPDATE ---
Update Note
Progress Note Update
-Called to bedside to assess bleed from pt's LUE
-Pt's previous left antecubital IV, had been removed with dressing applied
-Dressing was saturated with blood with nurse holding pressure after removal of dressing
-Pt is on heparin gtt, last PTT was 65.9
-I applied manual pressure x 10 min before achieving hemostasis, pressure dressing was then applied
-Pt advised to keep arm straight for at least 4hrs
-Will cont. to monitor and add CBC to labs
[2024-09-24 22:55] LABS: Mixed Venous O2 Saturation 61.3 %
[2024-09-24 22:56] LABS: % Basophils 0.2 % (0-2); % Eosinophils 1.5 % (0-6); % Immature Granulocytes 0.5 % (0-0.5); % Lymphocytes 9.4 % (20.5-51.1); % Neutrophils 81.4 % (42.2-75.2); Absolute Eosinophils 0.2 10^3/uL (0-0.7); Absolute Immature Granulocytes 0.1 10^3/uL (0-0.05); Absolute Lymphocytes 1.2 10^3/uL (1.2-3.4); Absolute Monocytes 0.9 10^3/uL (0.1-0.6); Absolute Neutrophils 10.1 10^3/uL (1.4-6.5); Hematocrit 35.3 % (37.0-47.0); Hemoglobin 11.6 g/dL (12.0-16.0); Mean Corp Hgb Conc. 32.9 g/dL (33.0-37.0); Mean Corpuscular Hgb 27.5 pg (27.0-31.0); Mean Corpuscular Volume 83.6 fL (81.0-99.0); Mean Platelet Volume 10.6 fL (7.4-10.4); Nucleated Red Blood Cells % 0 %; Platelet Count 192 10^3/uL (130-400); Red Blood Cell Count 4.22 10^6/uL (4.20-5.40); White Blood Cell Count 12.4 10^3/uL (4.8-10.8)
[2024-09-24 23:16] LABS: ALT (SGPT) 21 U/L (0-35); AST (SGOT) 39 U/L (14-36); Albumin 3.1 g/dl (3.5-5.0); Alkaline Phosphatase 75 U/L (38-126); Blood Urea Nitrogen 38 mg/dl (7-17); Calcium 8.3 mg/dl (8.4-10.2); Carbon Dioxide 26 mmol/L (22-30); Chloride 105 mmol/L (98-107); Estimated Creatinine Clearance 28 ml/min; Glucose 117 mg/dl (70-99); Potassium 3.8 mmol/L (3.5-5.1); Sodium 140 mmol/L (135-145); Total Protein 5.1 g/dl (6.3-8.2)
--- NOTE | 2024-09-24 23:17 | PTCARENOTE ---
While assessing patient noted blood under dressing of L AC PIV. While performing dressing change this RN noted that catheter was clearly dislodged. IV removed, but IV site persistently bleeding likely 2/2 IV heparin. Pressure applied and hemostasis
achieved. New gauze dressing applied. While assisting patient one hour later another RN noted that the previous gauze dressing was saturated with blood some leaking into the bed. Old dressing removed and pressure held. Notified CT PA who applied
pressure and pressure with dressing after achieving hemostasis again. Advised to keep extremity straight. Orders received verbally for CBC.
--- NOTE | 2024-09-24 23:48 | PTCARENOTE ---
Patient is AOx4, follows commands appropriately, moves all extremities. Patient is on strict bed rest for IABP. Lung sounds are diminished at bases, saO2 98% on 2L via NC. Heart sounds are audible, patient has SR with occasional PVCs and PACs,
normal palpable radials, and dorsalis pedis pulses are present with doppler. Patient has IABP device in place with 1:1 settings and max augmentation vital signs related to this device as follows: assisted BP: 90/50, end diastolic augmentation: 127,
augmented blood pressure: 142/94. Patient has active BS and reports multiple BMs during the day one episode of incontinence. Patient has [place] draining clear yellow urine. There is a R femoral arterial sheath through which the IABP device is floated
through. There is also a [place] lulu catheter introduce via R femoral venous sheath at 60 cm. Skin appears grossly intact. Patient has preventative foam on sacrum d/t strict bed rest. Call strong within reach.
[2024-09-25] VITALS (41 sets, daily range): BP systolic 98–149; BP diastolic 41–89; BMI 24.8
[2024-09-25] MEDS: CALCIUM GLUCONATE 100 IV (00:28)
[2024-09-25] MEDS: KCL 40 MEQ PO (00:28)
[2024-09-25] MEDS: TYLENOL 650 MG PO (00:34)
--- NOTE | 2024-09-25 00:43 | W.PN.UPDATE ---
Update Note
Progress Note Update
-At 0040 called to bedside to assess pt's RUE as it was noted to be swollen with pt complaining of pain at site
-BP cuff was @ site and removed, advised no further cuff pressures from RUE
-Pt noted to have a hematoma around tricep on my assessment
-Will apply ice and administer analgesic
-Will need further evaluation of RUE with ultrasound in AM
-Will cont. to monitor
[2024-09-25 00:50] LABS: Magnesium 1.7 mg/dl (1.6-2.3)
[2024-09-25] MEDS: ATIVAN 0.5 MG PO (00:56)
--- NOTE | 2024-09-25 01:05 | PTCARENOTE ---
Patient c/o pain in the RUE. Blood pressure cuff removed this RN noted large purple black ecchymosis over the tricep area. Upon palpation there is a firm spot at the center of this bruise. CT PA at bedside to assess confirmed as hematoma. Advised to
refrain from cuff BPs for the remainder of night. Ice applied.
[2024-09-25] MEDS: MAGNESIUM OXIDE 500 MG PO ×2 (01:16→19:53)
--- NOTE | 2024-09-25 02:00 | PTCARENOTE ---
Patient with low lytes following blood work. Increased occurrence of ectopy in the form of PVCs and PACs noted,. Received orders for repletion. K and Mag repleted via PO. Ca repleted with IV Ca Gluconate. Patient c/o anxiety given ativan per orders.
Call strong within reach.
[2024-09-25 03:32] LABS: % Basophils 0.2 % (0-2); % Eosinophils 1.1 % (0-6); % Immature Granulocytes 0.6 % (0-0.5); % Lymphocytes 10.2 % (20.5-51.1); % Monocytes 6.7 % (1.7-9.3); % Neutrophils 81.2 % (42.2-75.2); Absolute Eosinophils 0.1 10^3/uL (0-0.7); Absolute Immature Granulocytes 0.1 10^3/uL (0-0.05); Absolute Lymphocytes 1.3 10^3/uL (1.2-3.4); Absolute Monocytes 0.8 10^3/uL (0.1-0.6); Absolute Neutrophils 9.9 10^3/uL (1.4-6.5); Hematocrit 32.3 % (37.0-47.0); Hemoglobin 10.5 g/dL (12.0-16.0); Mean Corp Hgb Conc. 32.5 g/dL (33.0-37.0); Mean Corpuscular Hgb 27.6 pg (27.0-31.0); Mean Corpuscular Volume 84.8 fL (81.0-99.0); Mean Platelet Volume 10.9 fL (7.4-10.4); Nucleated Red Blood Cells % 0 %; Platelet Count 180 10^3/uL (130-400); Red Blood Cell Count 3.81 10^6/uL (4.20-5.40); Red Cell Dist. Width 14.9 % (11.5-14.5); White Blood Cell Count 12.2 10^3/uL (4.8-10.8)
[2024-09-25 03:39] LABS: APTT 111.3 Sec (23.4-35.0)
[2024-09-25 03:57] LABS: Magnesium 1.9 mg/dl (1.6-2.3)
[2024-09-25] MEDS: HEPARIN 25000 UNITS/250 ML IV (04:14)
[2024-09-25] MEDS: SYNTHROID 75 MCG PO (05:51)
[2024-09-25 06:21] LABS: Mixed Venous O2 Saturation 65.9 %
[2024-09-25] MEDS: PROTONIX 40 MG PO ×2 (08:04→19:53)
[2024-09-25] MEDS: BRILINTA 90 MG PO ×2 (08:04→19:53)
[2024-09-25] MEDS: LOW STRENGTH ASPIRIN 81 MG PO (08:04)
--- NOTE | 2024-09-25 08:31 | PTCARENOTE ---
Patient received from net technical architect resting in bed, sleepy but arousable and appropriate, denies pain. NSR via cm w/occasional PAC's/PVC's, SaO2 @ 98% on 2lnc. RFV sheath w/[place] Regis catheter to 60cm; RFA sheath w/IABP set to 1:1 timing with max aug -
distal pulses weakly palpable. Heparin infusing peripherally, d/c'd per Dr. Gutierrez at bedside @ 0800 pre-procedurally. RUE extremity w/extreme ecchymosis, tender to palp - physician notified. LAC previous PIV site cdi. Teresa catheter to gravity.
Patient updated to plan of care for the day, in agreement. Emotional support provided. See work list for full assessment and interventions performed.
[2024-09-25 09:23] LABS: ACT-LR - POC 245 Seconds (116-155)
[2024-09-25 09:32] LABS: ACT-LR - POC 239 Seconds (116-155)
[2024-09-25 09:43] LABS: ACT-LR - POC 313 Seconds (116-155)
[2024-09-25 10:09] LABS: ACT-LR - POC 302 Seconds (116-155)
[2024-09-25 10:44] LABS: ACT-LR - POC 334 Seconds (116-155)
[2024-09-25 11:05] LABS: ACT-LR - POC 292 Seconds (116-155)
[2024-09-25] MEDS: LASIX IV (11:38)
[2024-09-25] MEDS: MAGNESIUM OXIDE PO (11:38)
[2024-09-25] MEDS: COREG PO ×2 (11:39→19:54)
[2024-09-25 12:22] LABS: ACT-LR - POC 268 Seconds (116-155)
[2024-09-25] MEDS: ZETIA 10 MG PO (12:39)
[2024-09-25] MEDS: STERILE WATER FOR INJECTION 10 ML IV (12:39)
[2024-09-25] MEDS: ROCEPHIN 1000 MG IV (12:39)
[2024-09-25] MEDS: NSS 1000 IV (12:40)
--- NOTE | 2024-09-25 13:09 | PTCARENOTE ---
Patient received from CCL s/p PCI. RFA+V sheaths remain w/[place]-Ergis catheter, IABP present - leveled and calibrated. LFA procedural site cdi, no ecchymosis or hematoma noted, distal pulse weakly palp. Hemodynamics stable, CI 2.28, MVO2 obtained -
results conveyed to Dr. Gutierrez. Family to bedside. Patient resting comfortably.
[2024-09-25 13:34] LABS: ACT-LR - POC 236 Seconds (116-155)
--- NOTE | 2024-09-25 14:22 | W.PN.HOSP.TC ---
Addendum entered and electronically signed by Hao Rodriguez DO 09/26/24 12:01:
CDI: Systolic (mildly reduced EF, HFmrEF)
Original Note:
Today's Communication/Plan
-
Continue IV heparin drip pending [facility]
Follow-up [facility]
Titrate GDMT as possible
Telemetry
Assessment / Plan
Assessment / Plan
#Acute HFmrEF
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
-Was continued on carvedilol, aspirin, statin, ezetimibe; status post IV Lasix
-Planning for left heart cath today for high risk PCI; remains with [place]-Regis in place
-Most recent [place]-Regis readings from this morning with PASP 33, RAP 8
-With history of of CKD stage III, may not tolerate GDMT with ACEi/ARNI/MRA/SGLT2i
-Follow-up heart cath today, consider further diuresis
-Titrate GDMT as hemodynamics allow
-Trend BMP, I's/O's, daily weights
#NSTEMI
#CAD s/p CABG and AtriClip
#Dyslipidemia
-Initial presentation at [facility] on 09/22; was started on IV heparin drip, s/p IABP
-Plan to have high risk left main to left circumflex PCI today with interventional cardiology
-Remains on aspirin, carvedilol, high intensity statin, ezetimibe
-Plan to transition IV heparin drip to DAPT alone for at least 1 year
-Continue on telemetry
#UTI
-Diagnosed at [facility]; currently on IV ceftriaxone, day 3
-Urine culture taken on admission here with no growth, blood cultures also without growth
-Will plan to treat empirically through today, DC antibiotics after third dose
-Trend CBC and temperature curve
#CKD stage III
-Baseline creatinine near 1.2 with creatinine clearance near 30
-No known chronic acidemia, bone mineral disease, anemia of CKD
-CKD may limit ability to titrate GDMT as above
-Trend BMP
#Primary hypertension
-Home medications included HCTZ, metoprolol tartrate
-HCTZ discontinued, now on Lasix; metoprolol switched to carvedilol
-No known history of hypertensive systemic disease
-Blood pressure currently well-controlled
#Hypothyroidism
-Home medications include levothyroxine 100 mcg
-Known signs or symptoms of thyroid dysfunction
#H/O GIB
-History of esophageal ulcer
-Home regimen includes twice daily PPI
-No signs of bleeding at this time
#Skin tear of left forearm
-Has had some bleeding while on anticoagulation
-Wound care consulted
Diet: N.p.o. pending [facility]
DVT prophylaxis: IV heparin drip
CODE STATUS: Full code
Anticipated Discharge: > 48 hours
Subjective/Interval History
-
Date of Service: September 25, 2024
Seen and examined at the bedside. No acute events reported overnight. AFVSS on low-level oxygen
Plan for left heart cath today, high risk PCI of left main to LCx
Patient denies any new complaints as of this morning
Objective Data
-
Labs:
Laboratory Results
09/25/24
03:12
WBC 12.2 H
Hgb 10.5 L
Hct 32.3 L
Plt Count 180
APTT 111.3 H
Vital Signs:
Vital Signs
Temp Pulse Resp BP Pulse Ox
98 F 66 18 113/71 100
09/25/24 14:00 09/25/24 14:00 09/25/24 14:00 09/25/24 00:00 09/25/24 14:00
I&O
09/24/24 09/25/24 09/26/24
06:59 06:59 06:59
Intake Total 514 / 527 1525 / 1556 309 / 309
Output Total 3835 / 3915 1949 / 1989 220 / 220
Balance -3321 / -3388 -425 / -434
Review of Systems
-
History Source: Patient
All other systems: Reviewed and negative
Physical Exam
-
General: Well Developed, Well Nourished, No Apparent Distress and Comfortable
HEENT: Normocephalic, Atraumatic, Moist Mucous Membranes, Anicteric and Oxygen
Respiratory: Clear to Auscultation and Non Labored Respirations
Cardiac: Regular Rhythm and S1/S2; Negative Murmur, Rub, JVD or Gallop
GI: Soft, Nontender, Nondistended and Normal Bowel Sounds
Musculoskeletal: No Clubbing, No Cyanosis and No Edema
Skin: Warm, Dry, Normal Turgor and Other (Skin tear of left forearm); Negative Rash
Neuro: AO x 3 and Nonfocal/Grossly Intact; Negative Tremors
Psych: Calm
Data Reviewed
-
Labs: Labs Reviewed by me and Discussed with Patient
[2024-09-25 14:23] LABS: ACT-LR - POC 215 Seconds (116-155)
[2024-09-25 14:33] LABS: ACT-LR - POC > 397 Seconds (116-155)
[2024-09-25 15:19] LABS: ACT-LR - POC 178 Seconds (116-155)
--- NOTE | 2024-09-25 15:48 | W.PN.UPDATE ---
Update Note
Progress Note Update
Requested by buffing and sueding machine operator to remove right femoral [place] and IABP.
Confirmed balloon down. [place] removed without difficulty.
Balloon consult off, balloon and sheath removed without difficulty. Manual pressure applied x 30 minutes. +R DP signal
--- NOTE | 2024-09-25 16:07 | PTCARENOTE ---
Dr. Gutierrez updated to status. CCL team to bedside, RFA access d/c'd w/IABP and [place]-Regis catheter. Team currently holding pressure to site. Hemodynamics stable. L groin site from earlier procedure cdi, no ecchymosis or hematoma noted.
--- NOTE | 2024-09-25 16:48 | CM ---
spoke to pt in room, she is prev indep, lives in an indep apt with no step sto enter. she denies any dme's or dc planning needs. plan is for dc to home when medically stable.
--- NOTE | 2024-09-25 16:50 | CM ---
kael meade at [facility] in [place] veronica castro [phone]. her copay is Zero dollars and it is in stock.
--- NOTE | 2024-09-25 17:24 | ITS.CL.CATH ---
Orthodontic Technician Assistant - Catheterization
Cardiac Catheterization
Procedure Report:
CORONARY INTERVENTION
Date of Procedure: September 25, 2024
Referring: Jonah Vidales MD
PROCEDURES:
1. Left heart catheterization, selective coronary angiogram.
2. Moderate sedation.
3. IV L shockwave.
4. Successful percutaneous coronary artery intervention of a heavily calcified 90% distal left main into left circumflex stenosis with one 3.5 x 15 mm Xience wes point drug-eluting stent after calcium modification with IV L shockwave, postdilated
using IVUS guidance with a 4.0 x 12 mm NC balloon at 18 kennedy distally and a 4.5 x 8 mm at 14 kennedy proximally with an excellent angiographic and IVUS based result.
5. Intravascular ultrasound
INDICATION: Phyllis is a 84-year-old female with past medical history of hypertension, hyperlipidemia, hypothyroidism, coronary artery disease with prior coronary artery bypass grafting with ALICIA to LAD, saphenous vein graft to OM and saphenous vein
graft to RPDA who presented initially to [facility] with complaints of acute decompensated heart failure and lightheadedness found to have an NSTEMI with troponin elevation of 17 and short runs of nonsustained VT. In the setting she
underwent a urgent heart catheterization overnight at [facility] on September 23, 2024 where her ALICIA to LAD graft and her saphenous vein graft to RCA were patent however her SVG to OM was occluded. Given her EKG showed significant global ischemia
in the setting of a severe, heavily calcified 90% distal left main into proximal left circumflex stenosis with JONH II flow, an intra-aortic balloon pump was placed and she was transferred to [facility] for PCI of this lesion with likely
atherectomy. She was optimized medically over the weekend with scheduled PCI this morning.
ACCESS: Left common femoral artery, 7 [place] sheath under ultrasound guidance using a micropuncture kit.
HEMODYNAMICS : (mmHg) given patient's CKD, decision was made to check LVEDP to guide post procedure fluid management.
AO (s/d) : 129/53
LVEDP : 14
CORONARY FINDINGS: Limited selective coronary angiography
LEFT MAIN: The left main is a large-caliber vessel which gives rise to the left anterior descending artery and the left circumflex artery. Mid to distal left main extending into proximal left circumflex has a severely calcified up to 90% stenosis
which was intervened on as noted below.
LEFT ANTERIOR DESCENDING: The left anterior descending artery is a medium to large caliber vessel with mild to moderate diffuse atherosclerotic plaque in the proximal to midportion with 100% mid LAD occlusion with the distal vessel filling from a
patent ALICIA graft.
CIRCUMFLEX: The left circumflex artery is a medium to large caliber vessel which gives rise to 2 major obtuse marginal branches and a large posterolateral system. There is a heavily calcified up to 90% stenosis extending from distal left main into
proximal left circumflex with JONH II flow into the distal vessel. This area was intervened on as noted below.
CORONARY INTERVENTION: After failing to selectively engage a AL-1 and AL 2 guide, we proceeded to selectively engage using a 7 [place]uran EBU 3.5 guide catheter. Additional heparin was given to maintain a therapeutic ACT throughout the case. We
successfully advance with some manipulation a 300 cm 0.014' run-through wire into the distal vessel. Over this we brought in a 2.0 x 12 mm semicompliant balloon and inflated it to 16 kennedy with good expansion. We then further dilated the lesion
using a 2.5 x 12 mm NC balloon at 14 kennedy with good expansion. This was followed by a 3.0 x 12 mm NC balloon which also expanded well. Given significant calcium decision was to then proceed with 3.5 x 12 mm shockwave balloon and we delivered all 12
pulses moving the balloon slightly over all of the calcified areas. We placed a 190 cm 0.014' BMW coronary wire into the LAD and a second 190 cm 0.014 run-through wire into the distal left circumflex and retracted the 300 cm wire to be able to work
over a short wire. Over the run-through wire we then delivered a 3.5 x 15 mm NC balloon and expanded this to 16 kennedy with good expansion. We subsequently stented the lesion using a 3.5 x 15 mm Xience wes point drug-eluting stent, postdilated with
IVUS guidance using a 4.0 x 12 mm NC balloon at 18 kennedy. Given there was an area with evidence of slight stent underexpansion on intravascular ultrasound, we further postdilated this area with a 4.5 x 8 mm NC balloon at 14 kennedy with an excellent
angiographic and IVUS based result without evidence of proximal or distal stent edge dissections. Patient tolerated the procedure well. No acute complications.
SEDATION: 127 minutes of procedural sedation was utilized. An independent program medical director was present to assist with and help manage the patient's level of consciousness and physiologic status.
RADIATION SUMMARY: Fluoro Time (min): 35.7, dose (mGy): 2369.27, DAP (Gy.cm2) : 89 point
Closure Device: 8 [place]uran Angio-Seal over left common femoral artery with successful hemostasis.
CONCLUSIONS
1. Successful percutaneous coronary artery intervention of a heavily calcified 90% distal left main into left circumflex stenosis with one 3.5 x 15 mm Xience wes point drug-eluting stent after calcium modification with IV L shockwave, postdilated
using IVUS guidance with a 4.0 x 12 mm NC balloon at 18 kennedy distally and a 4.5 x 8 mm at 14 kennedy proximally with an excellent angiographic and IVUS based result.
2. LVEDP is 14 mmHg.
RECOMMENDATIONS
1. Continue dual antiplatelet therapy with daily baby aspirin and Brilinta 90 mg twice daily along with high intensity statin and beta-junie as tolerated.
2. Bedrest per protocol.
3. Plan to remove intra-aortic balloon pump and [place] catheter at bedside along with sheets.
4. Aggressive management of cardiovascular risk factors.
5. Eventual referral for outpatient cardiac rehab.
Copy to: Jonah Vidales MD and Ludwin Springer MD
Kailyn Gutierrez MD, [facility], [facility]
--- NOTE | 2024-09-25 18:22 | W.PN.UPDATE ---
Update Note
Progress Note Update
R femoral venous sheath removed without difficulty. Hemostasis obtained intratendinous manual pressure.
[2024-09-25] MEDS: IMODIUM 2 MG PO (19:54)
--- NOTE | 2024-09-25 21:46 | PTCARENOTE ---
Assumed care of patient at 1900. Patient found resting in bed at time of assessment. Patient is Aox4, follows commands appropriately, moves all extremities. Lung sounds are diminished at the bases, saO2 100% on 2L via NC. Heart sounds are audible,
patient is SR with PVCs, PACs on the monitor. Patient has normal palpable pulses and no observable edema. Patient has active BS in all four quadrants, patient has been incontinent of bowel during the day with loose BMs, there is a Teresa in place
draining clear yellow urine. Patient has R groin puncture with 4x4 dressing that is CDI, L groin puncture with 4x4 dressing that is CDI, LUE skin tear with 4x4 dressing and kerlix changed at start of shift. There is a RUE hematoma around the
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 Patient has some generalized bruising throughout as well. There is a L hand 20G PIV and R AC 20G PIV available for intermittent infusion. VSS. Call strong
within reach.
[2024-09-25] MEDS: COREG 3.125 MG PO (21:59)
[2024-09-25] MEDS: CRESTOR 20 MG PO (21:59)
[2024-09-26] VITALS (33 sets, daily range): BP systolic 76–149; BP diastolic 39–65; BMI 25.9
--- NOTE | 2024-09-26 | PTCARENOTE ---
Patient reassessed. Remains SR on the monitor. Patient given imodium for c/o diarrhea. Coreg dose lowered to 3.[address] PA for low BPs. Puncture sites remain CDI. Intermittent ice application over RUE for probable hematoma. Call strong within reach.
[2024-09-26 03:42] LABS: % Basophils 0.2 % (0-2); % Eosinophils 2.2 % (0-6); % Immature Granulocytes 0.5 % (0-0.5); % Lymphocytes 11.8 % (20.5-51.1); % Monocytes 7.6 % (1.7-9.3); % Neutrophils 77.7 % (42.2-75.2); Absolute Eosinophils 0.3 10^3/uL (0-0.7); Absolute Immature Granulocytes 0.1 10^3/uL (0-0.05); Absolute Lymphocytes 1.5 10^3/uL (1.2-3.4); Absolute Neutrophils 9.8 10^3/uL (1.4-6.5); Hematocrit 30.8 % (37.0-47.0); Hemoglobin 10.1 g/dL (12.0-16.0); Mean Corp Hgb Conc. 32.8 g/dL (33.0-37.0); Mean Corpuscular Hgb 27.5 pg (27.0-31.0); Mean Corpuscular Volume 83.9 fL (81.0-99.0); Mean Platelet Volume 10.7 fL (7.4-10.4); Nucleated Red Blood Cells % 0 %; Platelet Count 216 10^3/uL (130-400); Red Blood Cell Count 3.67 10^6/uL (4.20-5.40); Red Cell Dist. Width 14.9 % (11.5-14.5); White Blood Cell Count 12.6 10^3/uL (4.8-10.8)
[2024-09-26 04:09] LABS: Blood Urea Nitrogen 43 mg/dl (7-17); Calcium 9.1 mg/dl (8.4-10.2); Carbon Dioxide 24 mmol/L (22-30); Chloride 109 mmol/L (98-107); Estimated Creatinine Clearance 25 ml/min; Glucose 92 mg/dl (70-99); Magnesium 2.3 mg/dl (1.6-2.3); Potassium 5.1 mmol/L (3.5-5.1); Sodium 139 mmol/L (135-145)
--- NOTE | 2024-09-26 05:47 | PTCARENOTE ---
Patient reassessed. VSS overnight. AM labs obtained. Patient successfully oob to commode. C/o slight tenderness to palpation around R groin puncture site. Removed dressing to assess soft no significant ecchymosis noted. Replaced dressing. Call strong
within reach. Remains SR on the monitor.
[2024-09-26] MEDS: SYNTHROID 75 MCG PO (06:18)
--- NOTE | 2024-09-26 07:49 | W.PN.CARDCBS ---
Addendum entered and electronically signed by Polo Rehman MD 09/26/24 14:28:
Attending addendum: Patient seen and examined. PA note reviewed and findings confirmed by me. Angiogram from 09/25 reviewed. Patient had a vasovagal episode this am when in the bathroom. She has been feeling well since
PE:
Gen: lying in bed, NAD, interactive
HEENT: NC/AT, sclera anicteric
Lungs: Clear
CV: RRR with Normal S1 and S2
Ext: Bilateral arteriotomy sites look well. Both are soft and NO bruit is noted on either
RECOMMENDATIONS
-Continue dual antiplatelet
-Increase mobilization
-Hopefully home in 24-48 hours following high risk NSTEMI PCI of LM-LCX
Original Note:
Today's Communication / Plan
-
s/p distal L main to LCx PCI 09/25
in SR
continue asa, brilinta, crestor, zetia, coreg.
holding diuretics
wean supp O2
ambulate
ok for IVU
Impression / Plan
-
Outpatient Angiography Technologist: Dr. Ludwin Springer
Impression:
High risk NSTEMI, initially with ongoing ischemia, requiring IABP s/p shockwave assisted distal L main to LCx PCI 09/25/24
Acute decompensated systolic and diastolic heart failure.
Ischemic cardiomyopathy, LVEF of 45% with lateral and inferolateral hypokinesis
Coronary artery disease status post CABG in 2022 with ALICIA to LAD, saphenous vein graft to OM and saphenous vein graft to RPDA, SVG to OM is occluded now
Hypertension
Hyperlipidemia
Prior GI bleeding secondary to esophageal ulcer during admission in 2022
Chronic kidney disease stage IIIa
GERD
Prior vasovagal syncope
Paroxysmal SVT
Chronic anemia
Former smoker
UTI
ECHO 09/23/2024: EF 45 to 50%, lateral, inferolateral, basal inferior segments hypokinetic, mild concentric LVH, stage III diastolic dysfunction, posterior MAC, moderate MR, dilated LA, aortic sclerosis, trace AR, mild to moderate TR, PAP 43 mmHg
Plan:
-Patient presented with CP and ruled in for NSTEMI with peak trop of 17.2. initially required IABP due to ongoing ischemia. She underwent shockwave assisted distal L main to LCx PCI 09/25/24. IABP/swan removed last evening.
-doing well overnight.
-on asa, brilinta. copay $0. hgb stable at 10.1. B/L groin sites soft, NTTP. she does have scattered ecchymoses of B/L UE, will need to follow on DAPT. of note, she also has history of esophageal ulcer with GI bleeding in 2022.
-LDL 77. continue high intensity statin therapy. also on zetia.
-EF by echo 45-50%, newly reduced compared to prior
-continue coreg. hypotension limits GDMT at this time.
-she is currently being treated for UTI, so not present candidate for SGLT2 inhibitor
-by cath 09/25, LVEDP was 14. diuretics on hold at present. she was on HCTZ 12.5mg daily prior to admission
-Cr stable at 1.3. has known CKD stage 3A
-wean supp O2 as able
-ambulate/OOB as able
-ok for downgrade to IVU from CVICU
-cardiac rehab
-will arrange OP cardiac follow up
-d/w nursing
HPI:
Phyllis is a 84-year-old female with past medical history of hypertension, hyperlipidemia, hypothyroidism, CKD Stage IIIA, GERD, prior vasovagal syncope, paroxysmal SVT, former smoker, prior history of GI bleed due to esophageal ulcers during admission
in 2022 and chronic anemia, coronary artery disease status post coronary artery bypass grafting with atrial clip by Dr. Aris Dubois on 06/08/2022 with a ALICIA to LAD, saphenous vein graft to OM and saphenous vein graft to RPDA and 35mm Atriclip
who was transferred urgently this morning from [facility] due to concern for high risk NSTEMI and potential need for urgent high risk coronary artery intervention warranting atherectomy after presenting there initially with acutely
worsening orthopnea, feeling like she could not lay down and feeling like she was going to along with some lightheadedness. She was noted to be in acute decompensated heart failure with BNP of 1980, lactate of 1.7, high-sensitivity troponin
elevated to 17,000 with repeat down to 15,000. Her initial EKG showed sinus rhythm, PACs and nonspecific ST T wave changes. Patient never complained of any chest pain. Repeat EKG concerning for ischemia with ST elevations in aVR and ST
depressions diffusely in other leads. Given this interventional cardiology at [facility] was consulted and patient was urgently taken to the heart catheterization lab. Her ALICIA to LAD is widely patent as is her vein graft to RPDA. Her
vein graft to OM is now occluded with a heavily calcified mid to distal left main into ostial left circumflex subtotal occlusion with JONH II flow. There is also significant ostial and proximal RCA lesions with patent vein graft to RPDA. Mid LAD
is occluded. Mild to moderate pulmonary hypertension in the setting of elevated pulmonary capillary wedge and LVEDP were noted. Normal cardiac output and cardiac index. An intra-aortic balloon pump was placed and given the high risk nature of the
lesion requiring possible urgent intervention and atherectomy decision was made to transfer her to [facility]. Patient has remained stable hemodynamically there as well as here. She was placed on esmolol drip there as well as a IV
unfractionated heparin drip. She was also loaded with 180 mg of Brilinta.
Progress Note - Angiography Technologist
Subjective
Date of Service: September 26, 2024
denies CP, SOB, groin pain.
Objective
Labs:
09/26/24 02:56
09/26/24 02:56
Labs
Hgb 10.1 g/dL (12.0-16.0) L 09/26/24 02:56
Hct 30.8 % (37.0-47.0) L 09/26/24 02:56
Plt Count 216 10^3/uL (130-400) 09/26/24 02:56
PT 15.6 Sec (11.4-14.6) H 09/23/24 10:40
INR 1.21 09/23/24 10:40
APTT 111.3 Sec (23.4-35.0) H 09/25/24 03:12
Sodium 139 mmol/L (135-145) 09/26/24 02:56
Potassium 5.1 mmol/L (3.5-5.1) D 09/26/24 02:56
BUN 43 mg/dl (7-17) H 09/26/24 02:56
Creatinine 1.3 mg/dL (0.6-1.0) H 09/26/24 02:56
Glucose 92 mg/dl (70-99) 09/26/24 02:56
Troponins
09/23/24 09/23/24 09/23/24
10:40 11:07 11:35
Troponin I Cancelled Cancelled 16.400 H*
09/23/24 09/23/24 09/23/24
16:16 21:32 22:15
Troponin I 17.200 H* 16.800 H* Cancelled
09/24/24 09/24/24 09/24/24
04:05 11:11 16:58
Troponin I 12.100 H* D 9.640 H* 8.950 H*
09/24/24
22:42
Troponin I 9.090 H*
Vital Signs and I&O:
Vital Signs
Temp Pulse Resp BP Pulse Ox
98.3 F 67 16 112/53 99
09/26/24 04:00 09/26/24 07:15 09/26/24 07:15 09/26/24 07:00 09/26/24 07:15
Vital Signs
Temp Pulse Resp BP Pulse Ox
98.3 F 67 16 112/53 99
09/26/24 04:00 09/26/24 07:15 09/26/24 07:15 09/26/24 07:00 09/26/24 07:15
Intake & Output
09/23/24 09/24/24 09/25/24 09/26/24
07:59 07:59 07:59 07:59
Intake Total 527 / 590 1543 / 1563 1085 / 1085
Output Total 3915 / 3930 1910 / 1935 815 / 815
Balance -3388 / -3340 -367 / -372 270 / 270
Physical Exam
Physical Exam
GEN: No distress, awake, alert, oriented x3
HEENT: supple, anicteric, mmm, eomi
LUNGS: CTA B/L, no wheezes/rales
CV: Reg, S1/S2, 1/6 murmur
ABD: soft, BS+, NT/ND
EXT: No cyanosis, clubbing, edema
NEURO: Gross non-focal
SKIN: Warm, pink, dry. No rash. Scattered ecchymoses of B/L UE. B/L groin sites soft, NTTP.
--- NOTE | 2024-09-26 08:00 | PTCARENOTE ---
Assumed care of patient at 0645. Assessment completed and documented in shift assessment.
Discussed with cardiology Coreg dosage as patient received 3.125 last evening and ordered for 6.25 this AM. Per cardiology, okay/to trial 6.25 and to see how patient responds while in CVICU. BP most recently 116/50, HR 65.
[2024-09-26] MEDS: MAGNESIUM OXIDE 500 MG PO ×2 (08:22→21:20)
[2024-09-26] MEDS: ZETIA 10 MG PO (08:22)
[2024-09-26] MEDS: PROTONIX 40 MG PO ×2 (08:22→21:20)
[2024-09-26] MEDS: BRILINTA 90 MG PO ×2 (08:23→21:24)
[2024-09-26] MEDS: ROCEPHIN 1000 MG IV (08:23)
[2024-09-26] MEDS: COREG 6.25 MG PO (08:23)
[2024-09-26] MEDS: LOW STRENGTH ASPIRIN 81 MG PO (08:23)
[2024-09-26] MEDS: STERILE WATER FOR INJECTION 10 ML IV (08:23)
--- NOTE | 2024-09-26 08:40 | PTCARENOTE ---
Weaned to RA, SpO2 98%. Discontinued fulton catheter per order.
[2024-09-26] MEDS: IMODIUM 2 MG PO ×2 (09:51→16:25)
--- NOTE | 2024-09-26 10:10 | PTCARENOTE ---
Patient requested to go to the bathroom to have BM. Assisted into bathroom. As soon as patient sat, reported dizziness and eyes fluttered to the back of her head. Assisted patient into recliner with assistance from other staff and brought back into
bed. BP 70's/40's. Laid flat. Improved briefly to 107/39. Now sustaining 80's/50's. Patient reports feeling slightly better now in bed, conversant with staff. Notified cardiology and hospitalist.
Coreg dosing to be reduced for this evening. LR bolus to be ordered per hospitalist.
--- NOTE | 2024-09-26 10:29 | PN.CDI ---
CDI
- -
CDI:
Physician Documentation Request
Admit Date: 09/23/24 09:06
Dear Doctor Michael
Patient transferred from outside facility for cardiac intervention following NSTEMI.
Patient also noted to have heart failure.
Cardiology refers to the heart failure as 'Acute decompensated systolic and diastolic heart failure'
H&P as Acute HFpEF and 09/25 hospitalist note as 'Acute HFmrEF'
In an attempt to clarify potentially conflicting documentation , please clarify the type of CHF you are evaluating, treating or monitoring.
Type
Systolic
Diastolic
Combined Systolic/Diastolic
Other
Use of terms such as suspected, likely, concern for, or probable (associated with a specific diagnosis that is being evaluated, monitored, or treated as if it exists) are acceptable and can be coded in the inpatient setting, when documented at the
time of discharge.
Thank you,
Lavern Dozier RN, BSN
CDI Specialist
tiger text
Please use your independent medical judgment in providing your response.
--- NOTE | 2024-09-26 11:03 | W.PN.HOSP.TC ---
Today's Communication/Plan
-
500 mL LR bolus and daily orthostats
Decrease dose of carvedilol
Hold diuretics
DAPT/statin/ezetimibe
Day 4/5 of ceftriaxone
PT/OT
Assessment / Plan
Assessment / Plan
#Acute HFmrEF
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
-Was continued on carvedilol, aspirin, statin, ezetimibe; status post IV Lasix
-Planning for left heart cath today for high risk PCI; remains with [place]-Reg[place] in place
-Most recent [place] readings with PASP 33, RAP 8; has since been removed
-With history of of CKD stage III, may not tolerate GDMT with ACEi/ARNI/MRA/SGLT2i
-Holding diuretics, episode of hypotension 09/26, appears dry
-Titrate GDMT as hemodynamics allow
-Trend BMP, I's/O's, daily weights
#NSTEMI
#CAD s/p CABG and AtriClip
#Dyslipidemia
-Initial presentation at [facility] on 09/22; was started on IV heparin drip, s/p IABP
-S/p high risk left main to left circumflex PCI on 09/25/2024 with interventional cardiology
-Status post intra-aortic balloon pump that was removed on 09/25/2024
-Now on DAPT for 90 days (ASA + Brillinta), high intensity statin, ezetimibe, beta-junie
-Continue on telemetry
#UTI
-Diagnosed at [facility]; currently on IV ceftriaxone, day 09/02
-Urine culture taken on admission here with no growth, blood cultures also without growth
-Will plan to treat empirically through today, DC antibiotics after third dose
-Trend CBC and temperature curve
#Vasovagal episode
-Had episode of hypotension and presyncope that quickly resolved
-Likely vasovagal, occurred while ambulating/using the bathroom
-Cardiology reduced carvedilol dose to 3.125 mg twice daily
-Ordered 500 mL IV LR bolus
-Monitor orthostatic vitals
-Continue to monitor
#CKD stage III
-Baseline creatinine near 1.2 with creatinine clearance near 30
-No known chronic acidemia, bone mineral disease, anemia of CKD
-CKD may limit ability to titrate GDMT as above
-Trend BMP
#Primary hypertension
-Home medications included HCTZ, metoprolol tartrate
-HCTZ discontinued, now on Lasix; metoprolol switched to carvedilol
-No known history of hypertensive systemic disease
-Blood pressure currently well-controlled
#Hypothyroidism
-Home medications include levothyroxine 100 mcg
-Known signs or symptoms of thyroid dysfunction
#H/O GIB
-History of esophageal ulcer
-Home regimen includes twice daily PPI
-No signs of bleeding at this time
#Skin tear of left forearm
-Has had some bleeding while on anticoagulation
-Wound care consulted
Diet: Cholesterol-lowering
DVT prophylaxis: SCDs, DAPT
CODE STATUS: Full code
Anticipated Discharge: > 48 hours
Subjective/Interval History
-
Date of Service: September 26, 2024
Seen and examined at the bedside. No acute events reported overnight. AFVSS as of this morning.
Labs stable this morning. Denied any complaints at time of my evaluation
Following my eval, had an episode of hypotension and presyncope. Ordered 500 mL LR bolus, cardiology reduced carvedilol dose
Objective Data
-
Labs:
Laboratory Results
09/26/24
02:56
WBC 12.6 H
Hgb 10.1 L
Hct 30.8 L
Plt Count 216
Sodium 139
Potassium 5.1 D
Chloride 109 H
Carbon Dioxide 24
BUN 43 H
Creatinine 1.3 H
Glucose 92
Calcium 9.1
Vital Signs:
Vital Signs
Temp Pulse Resp BP Pulse Ox
98.1 F 72 20 83/50 98
09/26/24 08:00 09/26/24 10:45 09/26/24 10:45 09/26/24 10:45 09/26/24 10:45
I&O
09/25/24 09/26/24 09/27/24
06:59 06:59 06:59
Intake Total 1525 / 1556 1116 / 1116
Output Total 1949 810 / 855 90 / 90
Balance -425 / -434 306 / 261 -90 / -90
Review of Systems
-
History Source: Patient
All other systems: Reviewed and negative
[2024-09-26] MEDS: LR 500 IV (11:14)
--- NOTE | 2024-09-26 14:40 | PTCARENOTE ---
Received pt from CVICU. VSS. Oriented pt to IVU.
--- NOTE | 2024-09-26 16:04 | CM ---
Chart reviewed. Patient is independent of ADLS, lives alone in [place] at [facility], has a RW at home, 0 MICKY. Patient is not interested in VN at the present. She is going to her daughters house when medically stable for discharge.
--- NOTE | 2024-09-26 19:30 | PTCARENOTE ---
Assumed care of pt from prev nsg shift; Pt AAOx3 w/no c/o CP or SOB. Pt's VSS w/HR in the 70's & BP 109/61. Pt is SR w/occas PVC's on telemetry monitoring. 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
hematoma. L FA skin tear w/dressing C/D/I. RUE restrictions r/t RUE hematoma. Pt assisted OOB to BR w/1p contact guard w/RW. Pt's gait steady w/pt also noted to be mildly dyspneic on exertion. Pt assisted back to bed w/call strong within reach & no
addtl needs at this time. Plan of care ongoing.
[2024-09-26] MEDS: CRESTOR 20 MG PO (21:20)
[2024-09-26] MEDS: COREG 3.125 MG PO (21:21)
[2024-09-27] VITALS (8 sets, daily range): BP systolic 100–126; BP diastolic 44–99; PULSE 67–73; O2SAT 97; BMI 25.8
[2024-09-27 05:29] LABS: % Basophils 0.3 % (0-2); % Immature Granulocytes 0.7 % (0-0.5); % Lymphocytes 14.6 % (20.5-51.1); % Monocytes 8.5 % (1.7-9.3); % Neutrophils 73.9 % (42.2-75.2); Absolute Eosinophils 0.2 10^3/uL (0-0.7); Absolute Immature Granulocytes 0.1 10^3/uL (0-0.05); Absolute Lymphocytes 1.7 10^3/uL (1.2-3.4); Absolute Neutrophils 8.5 10^3/uL (1.4-6.5); Hematocrit 27.1 % (37.0-47.0); Mean Corp Hgb Conc. 33.2 g/dL (33.0-37.0); Mean Corpuscular Hgb 27.9 pg (27.0-31.0); Mean Corpuscular Volume 83.9 fL (81.0-99.0); Mean Platelet Volume 10.9 fL (7.4-10.4); Nucleated Red Blood Cells % 0 %; Platelet Count 188 10^3/uL (130-400); Red Blood Cell Count 3.23 10^6/uL (4.20-5.40); Red Cell Dist. Width 14.7 % (11.5-14.5); White Blood Cell Count 11.5 10^3/uL (4.8-10.8)
[2024-09-27 05:47] LABS: Blood Urea Nitrogen 35 mg/dl (7-17); Calcium 8.3 mg/dl (8.4-10.2); Carbon Dioxide 24 mmol/L (22-30); Chloride 109 mmol/L (98-107); Estimated Creatinine Clearance 29 ml/min; Glucose 102 mg/dl (70-99); Magnesium 2.4 mg/dl (1.6-2.3); Sodium 140 mmol/L (135-145); eGFR 49.86
[2024-09-27 05:53] LABS: Potassium 4.3 mmol/L (3.5-5.1)
[2024-09-27] MEDS: SYNTHROID 75 MCG PO (05:57)
[2024-09-27] MEDS: PROTONIX 40 MG PO ×2 (08:32→21:02)
[2024-09-27] MEDS: ZETIA 10 MG PO (08:32)
[2024-09-27] MEDS: COREG 3.125 MG PO ×2 (08:33→21:02)
[2024-09-27] MEDS: BRILINTA 90 MG PO ×2 (08:33→21:02)
[2024-09-27] MEDS: STERILE WATER FOR INJECTION 10 ML IV (08:35)
[2024-09-27] MEDS: LOW STRENGTH ASPIRIN 81 MG PO (08:35)
[2024-09-27] MEDS: ROCEPHIN 1000 MG IV (08:35)
--- NOTE | 2024-09-27 09:24 | W.PN.CARDCBS ---
Addendum entered and electronically signed by Kailyn Gutierrez MD 09/27/24 16:18:
I saw and examined the patient.
The [employer] Field Assistant's note was reviewed and I agree with the note.
Comment: Patient is doing well and does not offer any significant complaints. She has been out of bed going to the bathroom without any difficulty.
Lab work and vital signs reviewed. Blood pressures a little on the softer side however patient denies any lightheadedness or dizziness. Anemia noted with hemoglobin stable at 9.8 on repeat. No other overt signs of bleeding.
On exam patient is well-appearing, no acute distress, resting in bed, regular rate, normal S1 and S2, no murmurs, rubs or gallops, no JVD, lungs are clear to auscultation bilaterally, abdomen is soft, nontender, nondistended with active bowel
sounds, warm extremities without significant edema. Bilateral groin sites with dressing in place which is clean, dry and intact without evidence of bruit or hematoma.
Recommendations:
1. Continue dual antiplatelet therapy with daily baby aspirin and Brilinta 90 mg twice daily along with high intensity statin and low-dose beta-junie as tolerated.
2. Continue to monitor blood pressures closely however thankfully patient is not symptomatic with any lightheadedness or dizziness.
3. No overt signs of bleeding with stable groin sites. Closely monitor blood counts.
4. PT/OT, out of bed to chair, incentive spirometry.
5. Anticipate discharge hopefully in the next 24 to 36 hours.
6. Encouraged high-fiber Mediterranean type diet at home and outpatient cardiac rehab referral will be placed.
Kailyn Gutierrez MD, [facility], [facility]
Original Note:
Today's Communication / Plan
-
follow ortho VS
hemetest stools. follow hgb
ambulate
hopeful for DC in AM
Impression / Plan
-
Outpatient Green Chain Operator: Dr. Ludwin Springer
Impression:
High risk NSTEMI, initially with ongoing ischemia, requiring IABP s/p shockwave assisted distal L main to LCx PCI 09/25/24
Acute decompensated systolic and diastolic heart failure.
Ischemic cardiomyopathy, LVEF of 45% with lateral and inferolateral hypokinesis
Coronary artery disease status post CABG in 2022 with ALICIA to LAD, saphenous vein graft to OM and saphenous vein graft to RPDA, SVG to OM is occluded now
Hypertension
Hyperlipidemia
Prior GI bleeding secondary to esophageal ulcer during admission in 2022
Chronic kidney disease stage IIIa
GERD
Prior vasovagal syncope
Paroxysmal SVT
Chronic anemia
Former smoker
UTI
ECHO 09/23/2024: EF 45 to 50%, lateral, inferolateral, basal inferior segments hypokinetic, mild concentric LVH, stage III diastolic dysfunction, posterior MAC, moderate MR, dilated LA, aortic sclerosis, trace AR, mild to moderate TR, PAP 43 mmHg
Plan:
-Patient presented with CP and ruled in for NSTEMI with peak trop of 17.2. initially required IABP due to ongoing ischemia. She underwent shockwave assisted distal L main to LCx PCI 09/25/24. IABP/swan removed 09/25.
-she had a vasovagal episode while in bathroom 09/26. coreg dose was reduced to 3.125mg BID. BPs stable overnight
-in SR on review of tele overnight
-hgb downtrending from 12.4 on 09/23 to 9.0 today on asa, brilinta. she does have significant ecchymoses of B/L UE/chest. she also has history of esophageal ulcer with GI bleed in 2022. will hemetest stools. B/L groin sites soft, NTTP.
-LDL 77. continue high intensity statin therapy. also on zetia.
-EF by echo 45-50%, newly reduced compared to prior
-continue coreg. hypotension limits uptitration of GDMT at this time, but could consider as OP pending BP trends. follow ortho VS
-she is currently being treated for UTI, so not present candidate for SGLT2 inhibitor
-by cath 09/25, LVEDP was 14. diuretics on hold at present. she was on HCTZ 12.5mg daily prior to admission. Cr 1.1 on 09/27
-ambulate/OOB
-cardiac rehab
-OP cardiac follow up arranged
-hopeful for DC in AM
-d/w nursing
HPI:
Phyllis is a 84-year-old female with past medical history of hypertension, hyperlipidemia, hypothyroidism, CKD Stage IIIA, GERD, prior vasovagal syncope, paroxysmal SVT, former smoker, prior history of GI bleed due to esophageal ulcers during admission
in 2022 and chronic anemia, coronary artery disease status post coronary artery bypass grafting with atrial clip by Dr. Aris Dubois on 06/08/2022 with a ALICIA to LAD, saphenous vein graft to OM and saphenous vein graft to RPDA and 35mm Atriclip
who was transferred urgently this morning from [facility] due to concern for high risk NSTEMI and potential need for urgent high risk coronary artery intervention warranting atherectomy after presenting there initially with acutely
worsening orthopnea, feeling like she could not lay down and feeling like she was going to along with some lightheadedness. She was noted to be in acute decompensated heart failure with BNP of 1980, lactate of 1.7, high-sensitivity troponin
elevated to 17,000 with repeat down to 15,000. Her initial EKG showed sinus rhythm, PACs and nonspecific ST T wave changes. Patient never complained of any chest pain. Repeat EKG concerning for ischemia with ST elevations in aVR and ST
depressions diffusely in other leads. Given this interventional cardiology at [facility] was consulted and patient was urgently taken to the heart catheterization lab. Her ALICIA to LAD is widely patent as is her vein graft to RPDA. Her
vein graft to OM is now occluded with a heavily calcified mid to distal left main into ostial left circumflex subtotal occlusion with JONH II flow. There is also significant ostial and proximal RCA lesions with patent vein graft to RPDA. Mid LAD
is occluded. Mild to moderate pulmonary hypertension in the setting of elevated pulmonary capillary wedge and LVEDP were noted. Normal cardiac output and cardiac index. An intra-aortic balloon pump was placed and given the high risk nature of the
lesion requiring possible urgent intervention and atherectomy decision was made to transfer her to [facility]. Patient has remained stable hemodynamically there as well as here. She was placed on esmolol drip there as well as a IV
unfractionated heparin drip. She was also loaded with 180 mg of Brilinta.
Progress Note - Green Chain Operator
Subjective
Date of Service: September 27, 2024
no CP, SOB overnight. denies groin pain, abd pain, bloody stools
Objective
Labs:
09/27/24 04:43
09/27/24 04:43
Labs
Hgb 9.0 g/dL (12.0-16.0) L 09/27/24 04:43
Hct 27.1 % (37.0-47.0) L 09/27/24 04:43
Plt Count 188 10^3/uL (130-400) 09/27/24 04:43
PT 15.6 Sec (11.4-14.6) H 09/23/24 10:40
INR 1.21 09/23/24 10:40
APTT 111.3 Sec (23.4-35.0) H 09/25/24 03:12
Sodium 140 mmol/L (135-145) 09/27/24 04:43
Potassium 4.3 mmol/L (3.5-5.1) 09/27/24 04:43
BUN 35 mg/dl (7-17) H 09/27/24 04:43
Creatinine 1.1 mg/dL (0.6-1.0) H 09/27/24 04:43
Glucose 102 mg/dl (70-99) H 09/27/24 04:43
Troponins
09/24/24 09/24/24 09/24/24
11:11 16:58 22:42
Troponin I 9.640 H* 8.950 H* 9.090 H*
Vital Signs and I&O:
Vital Signs
Temp Pulse Resp BP Pulse Ox
98.5 F 69 20 125/51 97
09/27/24 06:37 09/27/24 08:33 09/27/24 06:37 09/27/24 08:33 09/27/24 06:37
Vital Signs
Temp Pulse Resp BP Pulse Ox
98.5 F 69 20 125/51 97
09/27/24 06:37 09/27/24 08:33 09/27/24 06:37 09/27/24 08:33 09/27/24 06:37
Intake & Output
09/25/24 09/26/24 09/27/24 09/28/24
07:59 07:59 07:59 07:59
Intake Total 1543 / 1563 1085 / 1085 240 / 240
Output Total 1909 / 1934 815 / 860 45 / 45
Balance -367 / -372 270 / 225 195 / 195
Physical Exam
Physical Exam
GEN: No distress, awake, alert, oriented x3
HEENT: supple, anicteric, mmm, eomi
LUNGS: CTA B/L, no wheezes/rales
CV: Reg, S1/S2, 1/6 murmur
ABD: soft, BS+, NT/ND
EXT: No cyanosis, clubbing, edema
NEURO: Gross non-focal
SKIN: Warm, pink, dry. No rash. Scattered ecchymoses of B/L UE.
--- NOTE | 2024-09-27 10:59 | CM ---
Chart reviewed. Patient is independent of ADLS, lives alone in [place] at [facility], 0 MICKY, 0 DME. Patient said she will be staying with her daughter when medically stable for discharge. PT evaluation ordered. CM to assess patient's
functional needs. Plan is for the patient to go to her daughters house vs SNF. CM to follow
--- NOTE | 2024-09-27 11:20 | W.PN.HOSP.TC ---
Today's Communication/Plan
-
Follow-up Hemoccult, iron studies, B vitamins
Continue with DAPT for now
Hold diuretics
Last day of antibiotics
Trend CBC
Assessment / Plan
Assessment / Plan
#Acute HFmrEF
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
-Was continued on carvedilol, aspirin, statin, ezetimibe; status post IV Lasix
-Planning for left heart cath today for high risk PCI; remains with [place] in place
-Most recent [place] readings with PASP 33, RAP 8; has since been removed
-With history of of CKD stage III, may not tolerate GDMT with ACEi/ARNI/MRA/SGLT2i
-Holding diuretics, episode of hypotension 09/26, appears euvolemic as of 09/27
-Titrate GDMT as hemodynamics allow
-Trend BMP, I's/O's, daily weights
#NSTEMI
#CAD s/p CABG and AtriClip
#Dyslipidemia
-Initial presentation at [facility] on 09/22; was started on IV heparin drip, s/p IABP
-S/p high risk left main to left circumflex PCI on 09/25/2024 with interventional cardiology
-Status post intra-aortic balloon pump that was removed on 09/25/2024
-Now on DAPT for 90 days (ASA + Brillinta), high intensity statin, ezetimibe, beta-junie
-Continue on telemetry
#UTI
-Diagnosed at [facility]; currently on IV ceftriaxone, day 10/02
-Urine culture taken on admission here with no growth, blood cultures also without growth
-Will plan to treat empirically through today, DC antibiotics after third dose
-Trend CBC and temperature curve
#Acute on chronic anemia
#Hematoma of the RUE
#H/O GIB due to esophageal ulcers
-Hemoglobin dropped from 10.1-9.0; concern for recurrent GI bleeding
-Home regimen includes twice daily PPI for history of esophageal ulcers
-Cardiology added on Hemoccult to reassess for GI bleeding
-Will add on iron studies, B12, folate to assess for deficiencies
-Trend CBC, consider type and screen and blood consent if worsen
-Continue with DAPT for now following high risk PCI of left main
#Vasovagal episode
-Had episode of hypotension and presyncope that quickly resolved
-Likely vasovagal, occurred while ambulating/using the bathroom
-Cardiology reduced carvedilol dose to 3.125 mg twice daily
-Ordered 500 mL IV LR bolus
-Monitor orthostatic vitals
-Continue to monitor
#CKD stage III
-Baseline creatinine near 1.2 with creatinine clearance near 30
-No known chronic acidemia, bone mineral disease, anemia of CKD
-CKD may limit ability to titrate GDMT as above
-Trend BMP
#Primary hypertension
-Home medications included HCTZ, metoprolol tartrate
-HCTZ discontinued, now on Lasix; metoprolol switched to carvedilol
-No known history of hypertensive systemic disease
-Blood pressure currently well-controlled
#Hypothyroidism
-Home medications include levothyroxine 100 mcg
-Known signs or symptoms of thyroid dysfunction
#Skin tear of left forearm
-Has had some bleeding while on anticoagulation
-Wound care consulted
Diet: Cholesterol-lowering
DVT prophylaxis: SCDs, DAPT
CODE STATUS: Full code
Anticipated Discharge: > 48 hours
Subjective/Interval History
-
Date of Service: September 27, 2024
Seen and examined at the bedside. No acute events reported overnight. AFVSS this morning
Hemoglobin drop from 10.1-9.0. Ultrasound RUE yesterday did show hematoma.
She denies any complaints as of this morning. Denies any recurrence of weakness/vasovagal like symptoms. Has ambulated to the bathroom multiple times without issue
Objective Data
-
Labs:
Laboratory Results
09/27/24
04:43
WBC 11.5 H
Hgb 9.0 L
Hct 27.1 L
Plt Count 188
Sodium 140
Potassium 4.3
Chloride 109 H
Carbon Dioxide 24
BUN 35 H
Creatinine 1.1 H
Glucose 102 H
Calcium 8.3 L
Vital Signs:
Vital Signs
Temp Pulse Resp BP Pulse Ox
98.5 F 69 20 125/51 97
09/27/24 06:37 09/27/24 08:33 09/27/24 06:37 09/27/24 08:33 09/27/24 10:39
I&O
09/26/24 09/27/24 09/28/24
06:59 06:59 06:59
Intake Total 1116 / 1116 240 / 240
Output Total 810 / 855 90 / 90
Balance 306 / 261 150 / 150
Review of Systems
-
History Source: Patient
All other systems: Reviewed and negative
Physical Exam
-
General: Well Developed, Well Nourished, No Apparent Distress and Comfortable
HEENT: Normocephalic, Atraumatic, Moist Mucous Membranes and Anicteric
Respiratory: Clear to Auscultation and Non Labored Respirations; Negative Accessory Resp Muscle Use
Cardiac: Regular Rhythm and S1/S2; Negative Murmur, Rub, JVD or Gallop
GI: Soft, Nontender, Nondistended and Normal Bowel Sounds
Musculoskeletal: No Clubbing, No Cyanosis and No Edema
Skin: Warm, Dry, Normal Turgor and Other (Hematoma of RUE; bruising noted on bilateral extremities)
Neuro: AO x 3 and Nonfocal/Grossly Intact; Negative Tremors
Psych: Calm
Data Reviewed
-
Labs: Labs Reviewed by me, Discussed with Nurse and Discussed with Patient
[2024-09-27 14:19] LABS: Hematocrit 30.1 % (37.0-47.0); Hemoglobin 9.8 g/dL (12.0-16.0)
--- NOTE | 2024-09-27 19:24 | PTCARENOTE ---
Pt OOB to chair and up in room and in palumbo with PT using her walker. Pt states she is tired with activity and is deconditioned, pt at risk to fall, precautions in place, she is calling for assistance appropriately. Pt reported feeling SOB at rest
but she was repositioned and this resolved, 97% on room air. Hg/Hct 9.0/27.1 this morning, rechecked at 14:00 9.8/30.1, will heme check stool. Pt denies any discomfort. Telemetry shows sinus rhythm.
--- NOTE | 2024-09-27 19:45 | PTCARENOTE ---
Assumed care of pt from prev nsg shift; Pt AAOx3 w/no c/o CP or SOB. Pt's VSS w/HR in the 70's & BP 129/62. Pt is SR w/a BBB & occas PVC's on telemetry monitoring. Pt w/bilat groin sites JODY w/some ecchymosis but intact w/no signs or symptoms of
bleeding or hematoma. L FA skin tear w/dressing C/D/I, noted to have been changed by prev nsg shift. RUE restrictions r/t RUE hematoma. Pt assisted OOB to BR w/1p contact guard w/RW. Pt assisted back to bed w/call strong within reach & no addtl needs
at this time. Plan of care ongoing.
[2024-09-27] MEDS: CRESTOR 20 MG PO (21:02)
[2024-09-28 03:00] VITALS: BP 130/63
[2024-09-28 04:19] LABS: % Basophils 0.3 % (0-2); % Eosinophils 1.8 % (0-6); % Immature Granulocytes 0.9 % (0-0.5); % Lymphocytes 14.4 % (20.5-51.1); % Monocytes 6.8 % (1.7-9.3); % Neutrophils 75.8 % (42.2-75.2); Absolute Eosinophils 0.3 10^3/uL (0-0.7); Absolute Immature Granulocytes 0.1 10^3/uL (0-0.05); Absolute Neutrophils 10.7 10^3/uL (1.4-6.5); Hematocrit 28.1 % (37.0-47.0); Hemoglobin 9.1 g/dL (12.0-16.0); Mean Corp Hgb Conc. 32.4 g/dL (33.0-37.0); Mean Corpuscular Hgb 27.3 pg (27.0-31.0); Mean Corpuscular Volume 84.4 fL (81.0-99.0); Mean Platelet Volume 10.7 fL (7.4-10.4); Nucleated Red Blood Cells % 0 %; Platelet Count 222 10^3/uL (130-400); Red Blood Cell Count 3.33 10^6/uL (4.20-5.40); Red Cell Dist. Width 14.8 % (11.5-14.5)
[2024-09-28 04:45] LABS: Blood Urea Nitrogen 29 mg/dl (7-17); Calcium 8.7 mg/dl (8.4-10.2); Carbon Dioxide 21 mmol/L (22-30); Chloride 107 mmol/L (98-107); Estimated Creatinine Clearance 29 ml/min; Glucose 107 mg/dl (70-99); Iron 38 ug/dl (37-170); Potassium 4.5 mmol/L (3.5-5.1); Sodium 138 mmol/L (135-145); eGFR 49.86
[2024-09-28 04:54] LABS: Percent Saturation 11 % (20-50); Total Iron Binding Capacity 319 ug/dl (265-497)
[2024-09-28 05:18] LABS: Ferritin 44.3 ng/ml (11.1-264.0)
[2024-09-28 05:49] LABS: Folate 13.3 ng/ml (2.76-20)
[2024-09-28 06:00] VITALS: BMI 25.7
[2024-09-28 06:55] VITALS: BP 127/68
[2024-09-28 06:58] LABS: Vitamin B12 987 pg/ml (239-931)
[2024-09-28] MEDS: SYNTHROID 75 MCG PO (07:05)
[2024-09-28] MEDS: ZETIA 10 MG PO (09:22)
[2024-09-28] MEDS: PROTONIX 40 MG PO (09:22)
[2024-09-28] MEDS: COREG 3.125 MG PO (09:22)
[2024-09-28] MEDS: LOW STRENGTH ASPIRIN 81 MG PO (09:23)
[2024-09-28] MEDS: BRILINTA 90 MG PO (09:23)
[2024-09-28] MEDS: FEOSOL 325 MG PO (09:24)
[2024-09-28] MEDS: STERILE WATER FOR INJECTION IV (09:24)
--- NOTE | 2024-09-28 10:14 | W.PN.CARDCBS ---
Addendum entered and electronically signed by Kailyn Gutierrez MD 09/28/24 14:50:
I saw and examined the patient.
The Hair Dresser's note was reviewed and I agree with the note.
Comment: Patient is doing well and does not offer any significant complaints. She has been out of bed ambulating without any complaints.
Lab work and vital signs reviewed. Anemia noted with hemoglobin stable at 9.8 on repeat. No other overt signs of bleeding.
On exam patient is well-appearing, no acute distress, resting in bed, regular rate, normal S1 and S2, no murmurs, rubs or gallops, no JVD, lungs are clear to auscultation bilaterally, abdomen is soft, nontender, nondistended with active bowel
sounds, warm extremities without significant edema. Bilateral groin sites with dressing in place which is clean, dry and intact without evidence of bruit or hematoma.
Recommendations:
1. Continue dual antiplatelet therapy with daily baby aspirin and Brilinta 90 mg twice daily along with high intensity statin and low-dose beta-junie as tolerated.
2. Ongoing risk factor modification.
3. For better blood pressure control, her home Toprol was switched out for carvedilol.
4. Will resume outpatient hydrochlorothiazide upon discharge. Educated her in regards to keeping daily upright weights and reviewed all signs and symptoms of heart failure in the setting of mild cardiomyopathy.
5. Continue optimization of goal-directed medical therapy for mild ischemic cardiomyopathy as an outpatient.
6. Encouraged high-fiber Mediterranean type diet at home and outpatient cardiac rehab referral will be placed.
7. Otherwise stable for discharge today. She will follow-up with Dr. Ludwin Springer
Kailyn Gutierrez MD, [facility], [facility]
Original Note:
Today's Communication / Plan
-
stable for DC
asa, brilinta
coreg in place on OP lopressor
continue crestor, zetia
resume OP HCTZ for DC
BMP in 1 week
OP follow up with Dr. Springer
Impression / Plan
-
Outpatient Assistant Portfolio Manager: Dr. Ludwin Springer
Impression:
High risk NSTEMI, initially with ongoing ischemia, requiring IABP s/p shockwave assisted distal L main to LCx PCI 09/25/24
Acute decompensated systolic and diastolic heart failure.
Ischemic cardiomyopathy, LVEF of 45% with lateral and inferolateral hypokinesis
Coronary artery disease status post CABG in 2022 with ALICIA to LAD, saphenous vein graft to OM and saphenous vein graft to RPDA, SVG to OM is occluded now
Hypertension
Hyperlipidemia
Prior GI bleeding secondary to esophageal ulcer during admission in 2022
Chronic kidney disease stage IIIa
GERD
Prior vasovagal syncope
Paroxysmal SVT
Chronic anemia
Former smoker
UTI
ECHO 09/23/2024: EF 45 to 50%, lateral, inferolateral, basal inferior segments hypokinetic, mild concentric LVH, stage III diastolic dysfunction, posterior MAC, moderate MR, dilated LA, aortic sclerosis, trace AR, mild to moderate TR, PAP 43 mmHg
Plan:
- Patient presented with CP and ruled in for NSTEMI with peak trop of 17.2. initially required IABP due to ongoing ischemia. She underwent shockwave assisted distal L main to LCx PCI 09/25/24. IABP/swan removed 09/25.
- Feeling well overnight. No chest pain
- In sinus rhythm on review of telemetry overnight with 1 brief run of A. tach
- Hemoglobin stable overnight around 9. She does have significant upper extremity ecchymoses. Continues on aspirin, Brilinta. If needed can transition to Plavix as an outpatient. She does have history of esophageal ulcer with GI bleeding in 2022.
- LDL 77. continue high intensity statin therapy. also on zetia.
- EF by echo 45-50%, newly reduced compared to prior
- Blood pressure stable overnight. Denies lightheadedness or dizziness. She did have a vasovagal episode on 09/26. Continue coreg. hypotension limits uptitration of GDMT at this time, but could consider as OP pending BP trends.
- she is currently being treated for UTI, so not present candidate for SGLT2 inhibitor
- by cath 09/25, LVEDP was 14. diuretics on hold at present. she was on HCTZ 12.5mg daily prior to admission, will resume. Creatinine stable at 1.1
- BMP in 1 week
- ambulate/OOB
- cardiac rehab
- OP cardiac follow up arranged with Dr. Springer
- Okay for discharge to home today from cardiac standpoint
- d/w nursing
HPI:
Phyllis is a 84-year-old female with past medical history of hypertension, hyperlipidemia, hypothyroidism, CKD Stage IIIA, GERD, prior vasovagal syncope, paroxysmal SVT, former smoker, prior history of GI bleed due to esophageal ulcers during admission
in 2022 and chronic anemia, coronary artery disease status post coronary artery bypass grafting with atrial clip by Dr. Aris Dubois on 06/08/2022 with a ALICIA to LAD, saphenous vein graft to OM and saphenous vein graft to RPDA and 35mm Atriclip
who was transferred urgently this morning from [facility] due to concern for high risk NSTEMI and potential need for urgent high risk coronary artery intervention warranting atherectomy after presenting there initially with acutely
worsening orthopnea, feeling like she could not lay down and feeling like she was going to along with some lightheadedness. She was noted to be in acute decompensated heart failure with BNP of 1980, lactate of 1.7, high-sensitivity troponin
elevated to 17,000 with repeat down to 15,000. Her initial EKG showed sinus rhythm, PACs and nonspecific ST T wave changes. Patient never complained of any chest pain. Repeat EKG concerning for ischemia with ST elevations in aVR and ST
depressions diffusely in other leads. Given this interventional cardiology at [facility] was consulted and patient was urgently taken to the heart catheterization lab. Her ALICIA to LAD is widely patent as is her vein graft to RPDA. Her
vein graft to OM is now occluded with a heavily calcified mid to distal left main into ostial left circumflex subtotal occlusion with JONH II flow. There is also significant ostial and proximal RCA lesions with patent vein graft to RPDA. Mid LAD
is occluded. Mild to moderate pulmonary hypertension in the setting of elevated pulmonary capillary wedge and LVEDP were noted. Normal cardiac output and cardiac index. An intra-aortic balloon pump was placed and given the high risk nature of the
lesion requiring possible urgent intervention and atherectomy decision was made to transfer her to [facility]. Patient has remained stable hemodynamically there as well as here. She was placed on esmolol drip there as well as a IV
unfractionated heparin drip. She was also loaded with 180 mg of Brilinta.
Progress Note - Assistant Portfolio Manager
Subjective
Date of Service: September 28, 2024
Reports she feels '100%'. Eager for discharge. No chest pain, shortness of breath, lightheadedness overnight
Objective
Labs:
09/28/24 03:23
09/28/24 03:23
Labs
Hgb 9.1 g/dL (12.0-16.0) L 09/28/24 03:23
Hct 28.1 % (37.0-47.0) L 09/28/24 03:23
Plt Count 222 10^3/uL (130-400) 09/28/24 03:23
PT 15.6 Sec (11.4-14.6) H 09/23/24 10:40
INR 1.21 09/23/24 10:40
APTT 111.3 Sec (23.4-35.0) H 09/25/24 03:12
Sodium 138 mmol/L (135-145) 09/28/24 03:23
Potassium 4.5 mmol/L (3.5-5.1) 09/28/24 03:23
BUN 29 mg/dl (7-17) H 09/28/24 03:23
Creatinine 1.1 mg/dL (0.6-1.0) H 09/28/24 03:23
Glucose 107 mg/dl (70-99) H 09/28/24 03:23
Vital Signs and I&O:
Vital Signs
Temp Pulse Resp BP Pulse Ox
98.7 F 71 14 127/68 97
09/28/24 06:56 09/28/24 09:22 09/28/24 06:56 09/28/24 09:22 09/28/24 09:28
Vital Signs
Temp Pulse Resp BP Pulse Ox
98.7 F 71 14 97
09/28/24 06:56 09/28/24 09:22 09/28/24 06:56 09/28/24 09:22 09/28/24 09:28
Intake & Output
09/26/24 09/27/24 09/28/24 09/29/24
07:59 07:59 07:59 07:59
Intake Total 1085 / 1085 240 / 240 1360 / 1360
Output Total 815 / 860 45 / 45 200 / 200
Balance 270 / 225 195 / 195 1160 / 1160
Physical Exam
Physical Exam
GEN: No distress, awake, alert, oriented x3
HEENT: supple, anicteric, mmm, eomi
LUNGS: CTA B/L, no wheezes/rales
CV: Reg, S1/S2, 1/6 murmur
ABD: soft, BS+, NT/ND
EXT: No cyanosis, clubbing, edema
NEURO: Gross non-focal
SKIN: Warm, pink, dry. No rash. Scattered ecchymoses of B/L UE.
[2024-09-28 10:34] VITALS: BP 114/44
--- NOTE | 2024-09-28 11:05 | CM ---
Chart reviewed. Patient is independent of ADLS, lives alone in a apartment at [facility], [address], ambulates with a RW and son just bought her a rollator and shower chair. Patient's daughter is her paid VN. She comes into her house
daily, takes her to doctors appointments and does exercises with her. Plan is for the patient to go home with daughter's VN. CM to follow
--- NOTE | 2024-09-28 11:05 | W.PN.HOSP.TC ---
Today's Communication/Plan
-
Discharge on current medications
CBC and BMP in 1 week
Outpatient cardiology follow-up in 1 month
Assessment / Plan
Assessment / Plan
#Acute HFmrEF
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
-Was continued on carvedilol, aspirin, statin, ezetimibe; status post IV Lasix
-Planning for left heart cath today for high risk PCI; remains with [place] in place
-Most recent [place] readings with PASP 33, RAP 8; has since been removed
-With history of of CKD stage III, may not tolerate GDMT with ACEi/ARNI/MRA/SGLT2i
-Holding diuretics, episode of hypotension 09/26, appears euvolemic as of 09/27
-Titrate GDMT as hemodynamics allow
-Trend BMP, I's/O's, daily weights
#NSTEMI
#CAD s/p CABG and AtriClip
#Dyslipidemia
-Initial presentation at [facility] on 09/22; was started on IV heparin drip, s/p IABP
-S/p high risk left main to left circumflex PCI on 09/25/2024 with interventional cardiology
-Status post intra-aortic balloon pump that was removed on 09/25/2024
-Now on DAPT for 90 days (ASA + Brillinta), high intensity statin, ezetimibe, beta-junie
-Continue on telemetry
#UTI
-Diagnosed at [facility]; status post 5 days of IV ceftriaxone
-Urine culture taken on admission here with no growth, blood cultures also without growth
-Will plan to treat empirically through today, DC antibiotics after third dose
-Trend CBC and temperature curve
#Acute on chronic anemia
#Hematoma of the RUE
#H/O GIB due to esophageal ulcers
-Hemoglobin dropped from 10.1-9.0; concern for recurrent GI bleeding
-Home regimen includes twice daily PPI for history of esophageal ulcers
-Cardiology added on Hemoccult to reassess for GI bleeding
-Will add on iron studies, B12, folate to assess for deficiencies
-Trend CBC, consider type and screen and blood consent if worsen
-Continue with DAPT for now following high risk PCI of left main
#Vasovagal episode
-Had episode of hypotension and presyncope that quickly resolved
-Likely vasovagal, occurred while ambulating/using the bathroom
-Cardiology reduced carvedilol dose to 3.125 mg twice daily
-Ordered 500 mL IV LR bolus
-Monitor orthostatic vitals
-Continue to monitor
#CKD stage III
-Baseline creatinine near 1.2 with creatinine clearance near 30
-No known chronic acidemia, bone mineral disease, anemia of CKD
-CKD may limit ability to titrate GDMT as above
-Trend BMP
#Primary hypertension
-Home medications included HCTZ, metoprolol tartrate
-HCTZ discontinued, now on Lasix; metoprolol switched to carvedilol
-No known history of hypertensive systemic disease
-Blood pressure currently well-controlled
#Hypothyroidism
-Home medications include levothyroxine 100 mcg
-Known signs or symptoms of thyroid dysfunction
#Skin tear of left forearm
-Has had some bleeding while on anticoagulation
-Wound care consulted
Diet: Cholesterol-lowering
DVT prophylaxis: SCDs, DAPT
CODE STATUS: Full code
Anticipated Discharge: Today
Subjective/Interval History
-
Date of Service: September 28, 2024
Seen and examined at the bedside. No acute events reported overnight. AFVSS this morning
Hemoglobin stabilized in the range of 9-9.8. Patient denies any bleeding. Denies chest pain or dyspnea
She states she feels well and would like to go home
Objective Data
-
Labs:
Laboratory Results
09/28/24
03:23
WBC 14.0 H
Hgb 9.1 L
Hct 28.1 L
Plt Count 222
Sodium 138
Potassium 4.5
Chloride 107
Carbon Dioxide 21 L
BUN 29 H
Creatinine 1.1 H
Glucose 107 H
Calcium 8.7
Vital Signs:
Vital Signs
Temp Pulse Resp BP Pulse Ox
98.1 F 86 20 114/44 97
09/28/24 10:34 09/28/24 10:45 09/28/24 10:34 09/28/24 10:34 09/28/24 10:34
I&O
09/27/24 09/28/24 09/29/24
06:59 06:59 06:59
Intake Total 240 / 240 1360 / 1360
Output Total 90 / 90 200 / 200
Balance 150 / 150 1160 / 1160
Review of Systems
-
History Source: Patient
All other systems: Reviewed and negative
Physical Exam
-
General: Well Developed, Well Nourished, No Apparent Distress and Comfortable
HEENT: Normocephalic, Atraumatic, Moist Mucous Membranes and Anicteric
Respiratory: Clear to Auscultation and Non Labored Respirations; Negative Accessory Resp Muscle Use
Cardiac: Regular Rhythm and S1/S2; Negative Murmur, Rub, JVD or Gallop
GI: Soft, Nontender, Nondistended and Normal Bowel Sounds
Musculoskeletal: No Clubbing, No Cyanosis and No Edema
Skin: Warm, Dry, Normal Turgor and Other (Ecchymoses on bilateral upper extremities); Negative Rash
Neuro: AO x 3 and Nonfocal/Grossly Intact; Negative Tremors
Psych: Calm
Data Reviewed
-
Labs: Labs Reviewed by me, Discussed with Physician (Rail Signal Mechanic) and Discussed with Patient
[2024-09-28] MEDS: ORETIC 12.5 MG PO (11:46)
--- NOTE | 2024-09-28 15:34 | PTCARENOTE ---
Pt walking in halls without problem. Pt seen by and Jovita Resendez, KIANA. Telemetry and IV device removed. Discharge instructions reviewed with pt and her daughter who will be her caregiver regarding wound care for skin tear on her left arm,
medications and their possible side effects,CHF guidelines, activity and driving guidelines, reporting cares and concerns and follow up appt's and lab tests. Very good understanding taught back to tis RN. Pt escorted out via wheelchair and
discharged to home.
--- NOTE | 2024-09-29 14:54 | W.DCSUMMARY ---
Discharge Summary
Discharge Data
Date of Admission: 09/23/24
Date of Discharge: 09/29/24
Total time spent discharging patient (in min): 32
-
Pending Results: No
Hospital Course
Discharging Physician :� Hao Rodriguez DO
Disposition :���� Home with homecare
Principal Discharge diagnosis :�
NSTEMI s/p PCI left main to LCx
Status post IABP
Acute HFmrEF
RUE hematoma
Iron deficiency anemia
Urinary tract infection
Chronic Discharge diagnosis :�
CAD s/p CABG x 3 and AtriClip
CKD stage III
Hypothyroidism
Hypertension
Hyperlipidemia
H/O esophageal ulcers
Hospital Course :�
84-year-old female that presented to the hospital as a transfer from [facility] with NSTEMI that necessitated percutaneous coronary intervention. Was found to be in acute CHF and started on IV diuretics. Started on IV heparin and
continue on aspirin for NSTEMI, noted to have short runs of NSVT. Initially on esmolol drip that was titrated off quickly. Was taken to [facility] and found to have distal left main to circumflex lesion. Intra-aortic balloon pump and [place]
catheter was placed at that time. Underwent left heart cath on 09/25/2024 with successful high risk PCI to distal left main and LCx with placement of KENISHA. Was subsequently started on DAPT with plan for 90-day regimen. Also started on high
intensity statin and beta-junie. Ultimately had IABP and [place] removed. Became hypotensive and vasovagal on diuretics which ultimately were held. Did not require standing loop diuretic at discharge. Was treated with IV ceftriaxone for 5
days for UTI. Started on oral iron supplement for iron deficiency anemia likely associated with hematomas. Recommend that patient follow up as outpatient with repeat BMP and CBC 1 week after discharge.
Consultants :
Cardiology: Kailyn Gutierrez MD
Cardiothoracic surgery: Eron Mauricio PA-C
Important imaging findings :�
TTE (09/23/2024)
Normal left ventricular chamber size.
Mildly reduced left ventricular systolic function. LVEF is 45-50% by Kruse's method.
The lateral, inferolateral and basal inferior are hypokinetic.
Mild concentric left ventricular hypertrophy. Dilated left atrium.
Stage III diastolic dysfunction suggestive of restrictive filling pattern and increased filling pressures.
Focal mitral sclerosis without stenosis. Posterior mitral annular calcification. Moderate mitral regurgitation.
Trileaflet aortic valve. Aortic sclerosis without stenosis. Trace aortic egurgitation is seen.
Structurally normal tricuspid valve. Tricuspid valve opens normally. Mild to moderate TR.
Estimated pulmonary artery pressure of 43 mmHg. Assuming a right atrial pressure of 3 mmHg.
Echo May 2024, ejection fraction is decreased from 60 to 65% to 45-50%.
There is lateral, inferolateral, and basal inferior hypokinesis.
Procedure findings :�
[facility] with angiography (09/25/2024)
CONCLUSIONS
1. Successful percutaneous coronary artery intervention of a heavily calcified 90% distal left main into left circumflex stenosis with one 3.5 x 15 mm Xience wes point drug-eluting stent after calcium modification with IV L shockwave, postdilated
using IVUS guidance with a 4.0 x 12 mm NC balloon at 18 kennedy distally and a 4.5 x 8 mm at 14 kennedy proximally with an excellent angiographic and IVUS based result.
2. LVEDP is 14 mmHg.
RECOMMENDATIONS
1. Continue dual antiplatelet therapy with daily baby aspirin and Brilinta 90 mg twice daily along with high intensity statin and beta-junie as tolerated.
2. Bedrest per protocol.
3. Plan to remove intra-aortic balloon pump and [place] catheter at bedside along with sheets.
4. Aggressive management of cardiovascular risk factors.
5. Eventual referral for outpatient cardiac rehab.
Follow-up :
Cardiology in 2 weeks after discharge
PCP in 1 to 2 weeks from discharge
Repeat BMP and CBC in 1 week
Cardiac rehab
Discharge Plan
-
Patient Disposition: Home with Home Care
Discharge Diagnosis/Procedures: NSTEMI
Lithotripsy with angioplasty and stent to Left Circumflex artery
Iron deficiency anemia
Hematoma of the upper extremities
History of CAD s/p CABG x 3 and AtriClip
Condition: Good
Diet: Low Cholesterol and 2 Gram Sodium
Activity: Other activity
Additional Activity: no heavy lifting greater than 10 pounds for 1 week!
Driving Restrictions: No driving for 24 hours
Blood Work: BMP and CBC in 1 week
Other Services: Cardiac Rehab
Specialty Instructions: Weigh Daily- Call MD for wt gain/loss 3 lbs overnight/5 lbs in 1 week
Activity Restrictions/Additional Instructions:
After discharge from the hospital schedule follow-up appointment with your family doctor. Should be seen in office within 1 to 2 weeks of discharge. Referral provided for a family doctor if needed
Follow-up in office with cardiology on 11/06/2024 at 2 PM
Stand Alone Forms: DC Instructions- Cath/EP Lab
Referrals:
Elizabeth Lazar MD, Resident [Family Practice Resident Year2] - in one to two weeks
Ludwin Springer MD [Active] - 11/06/24 2:00 pm (Cardiology followup appointment)
Additional Discharge Medication Instructions: Stop metoprolol tartrate
Start carvedilol 3.125 mg twice daily
Start ferrous sulfate 325 mg daily
Start Brilinta 90 mg twice daily (you will be on this medication and aspirin for 90 days, likely will stop aspirin after 90 days)
Decrease levothyroxine to 75 mcg daily
Hold Jardiance until seen by your forging machine hand
Prescriptions:
New
ticagrelor [Brilinta] 90 mg Tablet
90 mg PO BID 30 Days Qty: 60 0RF
carvedilol 3.125 mg Tablet
3.125 mg PO BID 30 Days Qty: 60 0RF
ferrous sulfate [FeroSul] 325 mg (65 mg iron) Tablet
325 mg PO DAILY 30 Days Qty: 30 0RF
levothyroxine 75 mcg Tablet
75 mcg PO DAILY @ 0600 30 Days Qty: 30 0RF
Continued
ezetimibe [Zetia] 10 mg Tablet
10 mg PO DAILY
aspirin 81 mg Tablet,Chewable
81 mg PO DAILY
rosuvastatin 20 mg Tablet
20 mg PO HS
pantoprazole 40 mg Tablet,Delayed Release (Dr/Ec)
40 mg PO BID Qty: 60 1RF
hydrochlorothiazide 12.5 mg Tablet
12.5 mg PO DAILY
Held
Jardiance 10 mg Tablet
10 mg PO DAILY
Hold Instructions: Until seen by cardiology on 11/06/2024
Discontinued
levothyroxine 75 mcg Tablet
100 mcg PO DAILY
metoprolol tartrate 25 mg Tablet
12.5 mg PO Q12 Qty: 60 1RF
Discharge Orders:
Discharge Patient (As Directed); Ordered 09/28/24
Ordered By: Hao Rodriguez
Care Plan Goals
Care Plan Goals:
Problem: Readiness for enhanced knowledge related to diagnosis and treatment plan
Goal: Understand your diagnosis and treatment plan needs, including medications if applicable.
Instructions: Know your diagnosis, underlying causes and treatment plan options, including medications if applicable. Consult with your health care team to learn about your diagnosis and treatment plan, including medications if applicable.
Discharge Date and Time
Discharge Date/Time: 09/28/24 14:55
Print Language: AZERI
== END 2024-09-28 14:55 | disposition home health service (06) | DRG 270 ==
LOC: IVU 09:06
PROVIDERS: Internal Medicine; Nurse Practitioner; ADMITTING PHYSICIAN Internal Medicine Interventional Cardiology; ATTENDING PHYSICIAN Internal Medicine
PROC: 02HP32Z Insertion of Monitoring Device into Pulmonary Trunk, Percutaneous Approach (ICD-10-PCS; 2024-09-23)
PROC: 5A02210 Assistance with Cardiac Output using Balloon Pump, Continuous (ICD-10-PCS; 2024-09-23)
PROC: B2111ZZ Fluoroscopy of Multiple Coronary Arteries using Low Osmolar Contrast (ICD-10-PCS; 2024-09-25)
PROC: 027034Z Dilation of Coronary Artery, One Artery with Drug-eluting Intraluminal Device, Percutaneous Approach (ICD-10-PCS; 2024-09-25)
PROC: 02F03ZZ Fragmentation in Coronary Artery, One Artery, Percutaneous Approach (ICD-10-PCS; 2024-09-25)
PROC: 4A023N7 Measurement of Cardiac Sampling and Pressure, Left Heart, Percutaneous Approach (ICD-10-PCS; 2024-09-25)
PROC: B240ZZ3 Ultrasonography of Single Coronary Artery, Intravascular (ICD-10-PCS; 2024-09-25)
DX: I21.4 Non-ST elevation (NSTEMI) myocardial infarction (principal); I50.23 Acute on chronic systolic (congestive) heart failure; I13.0 Hypertensive heart and chronic kidney disease with heart failure and stage 1 through stage 4 chronic kidney disease, or unspecified chronic kidney disease; I47.20 Ventricular tachycardia, unspecified; N39.0 Urinary tract infection, site not specified; Z95.811 Presence of heart assist device; I25.810 Atherosclerosis of coronary artery bypass graft(s) without angina pectoris; T82.53 Leakage of other cardiac and vascular devices and implants; I47.19 Other supraventricular tachycardia; I25.10 Atherosclerotic heart disease of native coronary artery without angina pectoris; N18.31 Chronic kidney disease, stage 3a; E03.9 Hypothyroidism, unspecified; E78.00 Pure hypercholesterolemia, unspecified; I70.0 Atherosclerosis of aorta; I27.20 Pulmonary hypertension, unspecified; I25.5 Ischemic cardiomyopathy; E78.5 Hyperlipidemia, unspecified; D64.9 Anemia, unspecified; K21.9 Gastro-esophageal reflux disease without esophagitis; Y83.8 Other surgical procedures as the cause of abnormal reaction of the patient, or of later complication, without mention of misadventure at the time of the procedure; Y92.9 Unspecified place or not applicable; S40.021A Contusion of right upper arm, initial encounter; S51.812A Laceration without foreign body of left forearm, initial encounter; X58.XXXA Exposure to other specified factors, initial encounter; Z60.2 Problems related to living alone; Z87.19 Personal history of other diseases of the digestive system; Z95.1 Presence of aortocoronary bypass graft; Z79.82 Long term (current) use of aspirin; Z79.890 Hormone replacement therapy; Z87.891 Personal history of nicotine dependence; Z79.02 Long term (current) use of antithrombotics/antiplatelets
CPT/HCPCS: 33967; 71045; 76882; 80048; 80053; 80061; 81003; 81015; 82607; 82728; 82746; 82805; 82810; 83036; 83540; 83550; 83605; 83735; 83880; 84439; 84443; 84484; 85014; 85018; 85025; 85027; 85347; 85610; 85730; 87040; 87086; 92972; 92978; 93005; 93306; 93451; 93458; 93971; 97163; 97166; 99152; 99153; C1725; C1753; C1760; C1761; C1769; C1874; C1892; C1894; C9600